=== PATIENT | male | born 1935 | race Caucasian/White ===

== ENCOUNTER 2016-06-28 09:21 | Day surgery (SDC) | payer OTHER ==
[~2016-06-28] VITALS: Ht 188 cm; Wt 81.8 kg
[~2016-06-28 09:21] MED LIST: AMOX500T PO; ATOR20TA PO; CARV6.252 PO; CURCPOW PO; DABI150 PO; EFFE37.5 PO; FOLI1 PO; FURO20 PO; GLIP10TA6 PO; GLUC1000 PO; LISI-360 PO; TEMA15 PO
[2016-06-28] MEDS ORDERED: METF1000 PO (09:57)
[2016-06-28] MEDS ORDERED: THERTAB17 PO (09:57)
[2016-06-28] MEDS ORDERED: MULT-135 PO (09:57)
[2016-06-28] MEDS ORDERED: ATOR40TA16 PO (09:57)
[2016-06-28] MEDS ORDERED: DILT-30 PO (09:57)
[2016-06-28] MEDS ORDERED: MILKSUS PO (09:57)
[2016-06-28] MEDS ORDERED: VITACAP7 PO (09:57)
[2016-06-28] MEDS ORDERED: PRAD150C PO (09:57)
[2016-06-28] MEDS ORDERED: POTA10TA2 PO (09:57)
[2016-06-28] MEDS ORDERED: ACET325T PO (09:57)
[2016-06-28] MEDS ORDERED: CARV12.52 PO (09:57)
[2016-06-28] MEDS ORDERED: LEXA10TA PO (09:57)
[2016-06-28] MEDS ORDERED: SERO25TA PO (09:57)
[2016-06-28] MEDS ORDERED: MAGN400T2 PO (09:57)
[2016-06-28] MEDS ORDERED: ASPI1TAB69 PO ×2 (09:57→09:58)
[2016-06-28] MEDS ORDERED: CLOP75TA PO (09:57)
[2016-06-28] MEDS ORDERED: FURO20TA PO (09:57)
[2016-06-28] MEDS ORDERED: GENTAMICIN SULFATE TOP (09:57)
[2016-06-28] MEDS ORDERED: DULC10SU3 RECTAL (09:57)
[2016-06-28] MEDS ORDERED: FERR325T PO (09:57)
[2016-06-28] MEDS ORDERED: GLIP5TAB8 PO (09:57)
[2016-06-28] MEDS ORDERED: GABA300C5 PO (09:57)
[2016-06-28 09:58] VITALS: BP 157/81; PULSE 92; RESP 16; TEMP 98; O2SAT 97
[2016-06-28 10:00] VITALS: BP 157/81; PULSE 98; RESP 18; TEMP 97.7; O2SAT 96
[2016-06-28] MEDS ORDERED: SODIUM BICARBONATE 100 MEQ in D5W 1000 ML IV SCH (10:00)
[2016-06-28] MEDS ORDERED: SODIUM CHLORIDE 0.9% FLUSH 10 ML FLUSH IV FLUSH PRN ×2 (10:00)
[2016-06-28] MEDS ORDERED: [UNRECOGNIZED DRUG - REMARK] OTHER SCH (10:00)
[2016-06-28 10:03] LABS: AUTOMATED NEUTROPHIL # 6.9 TH/MM3 (1.8-7.7); BASOPHIL # 0.1 TH/MM3 (0-0.2); BASOPHIL % 0.9 % (0.0-2.0); EOSINOPHIL # 0.2 TH/MM3 (0-0.4); EOSINOPHIL % 1.7 % (0.0-4.0); HEMATOCRIT 31.1 % (39.0-51.0); HEMO FLAGS DIFF FINAL; LYMPH % 13.5 % (9.0-44.0); LYMPHOCYTE # 1.3 TH/MM3 (1.0-4.8); MEAN CELL VOLUME 76.9 FL (80.0-100.0); MEAN CORPUSCULAR HEMOGLOBIN 25.2 PG (27.0-34.0); MEAN CORPUSCULAR HGB CONC 32.8 % (32.0-36.0); MONO % 11.6 % (0.0-8.0); NEUT % 72.3 % (16.0-70.0); PLATELET COUNT 512 TH/MM3 (150-450); RED BLOOD COUNT 4.04 MIL/MM3 (4.50-5.90); RED CELL DISTRIBUTION WIDTH 19.1 % (11.6-17.2); WHITE BLOOD COUNT 9.6 TH/MM3 (4.0-11.0)
[2016-06-28 10:15] LABS: BICARBONATE 28.3 MEQ/L (21.0-32.0); POTASSIUM 4.2 MEQ/L (3.5-5.1)
[2016-06-28 10:23] LABS: INTERNATIONAL NORMALIZED RATIO 1.1 RATIO; PROTHROMBIN TIME - PATIENT 12.7 SEC (9.8-11.6)
[2016-06-28] MEDS ORDERED: MIDAZOLAM HCL 2 MG/2 ML VIAL ONE (12:30)
[2016-06-28] MEDS ORDERED: HEPARIN-NS/PF INJ 500 ML ONE (12:30)
[2016-06-28] MEDS ORDERED: HEPARIN SODIUM - IV 10,000 UNITS/10 ML VIAL ONE (12:31)
[2016-06-28] MEDS ORDERED: IOHEXOL 350 MG/ML 100 ML BTL (for Cath Lab) OTHER ONE (14:00)
--- NOTE | 2016-06-28 16:07 | MA ---
cc: DAVID PERRY DATE 06/28/2016 Angiogram PREOPERATIVE DIAGNOSIS Nonhealing ulcer left lower extremity. POSTOPERATIVE DIAGNOSIS Nonhealing ulcer left lower extremity. PROCEDURE Aortogram and selective left lower extremity arteriogram. SURGEON David Perry D.O. PROCEDURE I got access to the right common femoral artery using duplex ultrasound. I placed a 21 gauge needle in the right common femoral artery after the patient was under moderate sedation and after injecting 5 mL of 1% lidocaine. I used the Seldinger technique to exchange for a 5-Japanese sheath and I advanced an Omni flush catheter in the distal abdominal aorta and shot pelvic oblique arteriograms. I then selected out the left external iliac artery using angled glide catheter and then shot a second left lower extremity arteriogram. Then I pulled my catheter out and shot a selective right groin shot, and then pulled the sheath and applied pressure to the right groin. The patient tolerated the procedure well. FINDINGS My findings were that the abdominal aorta below the level of the renal arteries appeared to be widely patent. The bilateral common internal and external iliac arteries were patent, although tortuous. The right common femoral artery had just a mild to moderate stenosis with extensive calcification and the proximal SFA and profunda femoral arteries were patent. The left common femoral artery had a moderately severe stenosis. The patient had runoff through the profunda femoral artery and superficial femoral artery. 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 The patient's left anterior tibial artery was occluded and the left peroneal artery was patent but it was difficult to see with the patient's movement. ] CONCLUSION The patient had a bilateral common femoral arteries with moderate stenoses. 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 DO LEVY Wild/JEREMI /1:45 PM /3:45 PM
== END 2016-06-28 18:42 ==
LOC: HDOC 09:21 → HDIC 09:21 → HDOC 18:42
PROVIDERS: ATTEND Surgery
DX: I70.213 Atherosclerosis of native arteries of extremities with intermittent claudication, bilateral legs (principal); I70.245 Atherosclerosis of native arteries of left leg with ulceration of other part of foot; L97.929 Non-pressure chronic ulcer of unspecified part of left lower leg with unspecified severity; I48.91 Unspecified atrial fibrillation; I10 Essential (primary) hypertension; Z79.01 Long term (current) use of anticoagulants
CPT/HCPCS: 36246; 75625; 75710; 80048; 85025; 85610; C1769; C1887; C1893; J1644; J2250; J3010; J7070; Q9967

== ENCOUNTER → 2016-07-27 | Outpatient (CLI) | payer OTHER ==
[~2016-07-27] MED LIST changes: +ACET325T PO; -AMOX500T PO; +ASPI1TAB69 PO; -ATOR20TA PO; +ATOR40TA16 PO; +BACT800T5 PO; +CARV12.52 PO; -CARV6.252 PO; +CLOP75TA PO; -CURCPOW PO; -DABI150 PO; +DILT-30 PO; +DULC10SU3 RECTAL; -EFFE37.5 PO; +FERR325T PO; +FLEEENE3 RECTAL; -FOLI1 PO; -FURO20 PO; +FURO20TA PO; +GABA300C5 PO; +GENTAMICIN SULFATE TOP; -GLIP10TA6 PO; +GLIP5TAB8 PO; -GLUC1000 PO; +GLUCLIQ15 PO; +HYDR-3516 PO; +LACTCHW3 CHEW; +LEVA500T PO; +LEXA10TA PO; -LISI-360 PO; +MAGN400T2 PO; +METF1000 PO; +MILKSUS PO; +MULT-135 PO; +NORC5TAB PO; +POTA10TA2 PO; +PRAD150C PO; +PROSTAB PO; +SERO25TA PO; +STRETAB PO; -TEMA15 PO; +THERTAB17 PO; +VITACAP7 PO
[2016-07-27 13:38] LABS: AUTOMATED NEUTROPHIL # 15.4 TH/MM3 (1.8-7.7); BASOPHIL # 0.1 TH/MM3 (0-0.2); BASOPHIL % 0.4 % (0.0-2.0); EOSINOPHIL # 0.3 TH/MM3 (0-0.4); EOSINOPHIL % 1.9 % (0.0-4.0); HEMATOCRIT 29.2 % (39.0-51.0); LYMPH % 6.1 % (9.0-44.0); LYMPHOCYTE # 1.1 TH/MM3 (1.0-4.8); MEAN CELL VOLUME 73.5 FL (80.0-100.0); MEAN CORPUSCULAR HEMOGLOBIN 23.8 PG (27.0-34.0); MEAN CORPUSCULAR HGB CONC 32.4 % (32.0-36.0); MONO % 6.6 % (0.0-8.0); PLATELET COUNT 549 TH/MM3 (150-450); RED BLOOD COUNT 3.96 MIL/MM3 (4.50-5.90); WHITE BLOOD COUNT 18.1 TH/MM3 (4.0-11.0)
[2016-07-27 13:39] LABS: HEMO FLAGS AUTO DIFF
[2016-07-27 13:45] LABS: INTERNATIONAL NORMALIZED RATIO 1.1 RATIO; PROTHROMBIN TIME - PATIENT 12.2 SEC (9.8-11.6)
[2016-07-27 14:03] LABS: ALKALINE PHOSPHATASE 120 U/L (45-117); ALT (GPT) 47 U/L (12-78); ANION GAP 5 MEQ/L (5-15); AST (GOT) 22 U/L (15-37); BICARBONATE 30.4 MEQ/L (21.0-32.0); BLOOD UREA NITROGEN 22 MG/DL (7-18); CHLORIDE 98 MEQ/L (98-107); GLOMERULAR FILTRATION RATE 71 ML/MIN (>89); GLUCOSE,FASTING 96 MG/DL (74-99); POTASSIUM 4.4 MEQ/L (3.5-5.1); SODIUM (NA) 133 MEQ/L (136-145); TOTAL BILIRUBIN ADULT 0.3 MG/DL (0.2-1.0)
[2016-07-27 14:19] LABS: ACANTHOCYTES OCC (NORMAL)
[2016-07-27 14:20] LABS: OVALOCYTES 1+ (NORMAL); SCAN/DIFF AUTO DIFF CONFIRMED
--- NOTE | 2016-07-27 14:35 | RADRPT ---
EXAM DATE/TIME: 07/27/2016 13:42 [facility] COMPARISON: No previous studies available for comparison. INDICATIONS : Evaluate for pneumonia, pneumothorax, and communicable disease. Preop for femoral endarterectomy. MEDICAL HISTORY : Myocardial infarction. Cardiovascular disease. Hypertension. Diabetes. SURGICAL HISTORY : None. ENCOUNTER: Initial ACUITY: 1 day PAIN SCORE: 0/10 LOCATION: Bilateral chest FINDINGS: The lungs are clear without infiltrate, nodule, or mass. There is no appreciable pleural effusion fo r technique. Heart and mediastinum are unremarkable. There are atherosclerotic calcifications of the aorta due to chronic atherosclerotic disease. Chronic degenerative changes are present in bilateral shoulders with chronic tendinitis in the right shoulder as well. CONCLUSION: No acute cardiopulmonary disease. Giuseppe Underwood MD on July 27, 2016 at 14:32 Board Certified Radiologist. This report was verified electronically.
--- NOTE | 2016-07-28 13:52 | EKG ---
Date Performed: 07/27/2016 Time Performed: 13:02:00 PTAGE: 80 years EKG: ATRIAL FIBRILLATION MODERATE INTRAVENTRICULAR CONDUCTION DELAY MODERATE ST DEPRESSION ABNOR MAL ECG Compared to prior tracing no significant change PREVIOUS TRACING : 05/07/2015 18.44 DOCTOR: Ronnell Broussard Interpretating Date/Time 07/28/2016 13:50:57
== END ==
LOC: EDSTATUS 11:00 → CPRE 12:29
PROVIDERS: ATTEND Surgery
DX: Z01.810 Encounter for preprocedural cardiovascular examination (principal); Z01.811 Encounter for preprocedural respiratory examination; Z01.812 Encounter for preprocedural laboratory examination; I73.9 Peripheral vascular disease, unspecified; R94.31 Abnormal electrocardiogram [ECG] [EKG]
CPT/HCPCS: 36415; 71020; 80053; 85025; 85610; 86850; 86900; 86901; 93005

== ENCOUNTER 2016-08-02 11:43 | Inpatient (IN) | payer OTHER, MEDICARE ==
[~2016-08-02] VITALS: Ht 188 cm; Wt 72.5 kg
[~2016-08-02 11:43] MED LIST changes: -BACT800T5 PO; +BUPIVACAINE HCL PF 0.5% 30 ML VIAL NERV BLOCK ONE; -FLEEENE3 RECTAL; -GENTAMICIN SULFATE TOP; -GLUCLIQ15 PO; -HYDR-3516 PO; -LACTCHW3 CHEW; -LEVA500T PO; -NORC5TAB PO; -PROSTAB PO; -STRETAB PO
[2016-08-02 11:46] VITALS: BP 102/56; PULSE 67; RESP 14; TEMP 97.4; O2SAT 94
--- NOTE | 2016-08-02 11:52 | PD ---
Physical Exam Time Seen by Provider: 11:49 Narrative 80 y/o male presents with L foot "infection." Resident of [facility]. Wound care physician saw his foot today who spoke with his vascular sx Dr. Bhardwaj and advised to come here. Vital signs reviewed. Seen at triage desk. Awaiting bed placement. Data Data Last Documented VS Vital Signs Date Time Temp Pulse Resp B/P Pulse Ox O2 Delivery O2 Flow Rate FiO2 08/02/16 11:46 97.4 67 14 102/56 94 MDM Medical Record Reviewed: Yes Supervised Visit with ANDREWS: Luis Benitez August 02, 2016 11:52
[2016-08-02] MEDS ORDERED: VANCOMYCIN INJ 1,000 MG in SODIUM CHLOR 0.9% 250 ML INJ 250 ML IV ONE (12:30)
--- NOTE | 2016-08-02 12:36 | PD ---
HPI Chief Complaint: Injury Time Seen by Provider: 12:29 Travel History International Travel<30 days: No Contact w/Intl Traveler<30days: No Traveled to known affect area: No History of Present Illness HPI Patient comes emergency Department from [facility] for evaluation of his left foot wound been ongoing for several weeks. Patient's states that he is supposed to have surgery this Monday by Dr. Angeles secondary to having decreased arterial flow as left lower extremity however after receiving wound care today his reports the wound care physician spoke with Dr. Angeles and was recommended the patient of the emergency department for further treatment and evaluation. Patient reports pain around the site infection without radiation. Pain is worse with walking. Denies any known fevers, nausea, vomiting, chest pain, shortness of breath. Patient is currently on Bactrim and Levaquin, which he has received today. Patient has a history of depression, hyperlipidemia, hypertension, coronary artery disease, anemia, A. fib, diabetes mellitus, and CHF. PFSH Past Medical History Hx Anticoagulant Therapy: Yes (PRADAXA) Asthma: No Atrial Fibrillation: Yes Anxiety: Yes (occasional) Depression: Yes (occasional) Heart Rhythm Problems: Yes Cancer: No Cardiovascular Problems: Yes ([place]) High Cholesterol: Yes Chemotherapy: No Chest Pain: No Congestive Heart Failure: No COPD: No Diabetes: Yes Diminished Hearing: No Endocrine: No Gastrointestinal Disorders: No Genitourinary: No Hypertension: Yes Musculoskeletal: Yes (cramps in legs) Neurologic: No Psychiatric: No Reproductive: No Respiratory: No Myocardial Infarction: Yes Radiation Therapy: No Sleep Apnea: Yes (untreated) Thyroid Disease: No Tetanus Vaccination: Unknown Influenza Vaccination: Yes Past Surgical History Other Surgery: Yes (big toes amputated) Social History Alcohol Use: No Tobacco Use: No Substance Use: No Allergies-Medications (Allergen,Severity, Reaction): Coded Allergies: No Known Allergies (Verified , 08/02/16) Reported Meds & Prescriptions Reported Meds & Active Scripts Active Reported [place] (Hydrocodone-Acetaminophen) 5-325 mg Tab 1 Tab PO Q6H PRN Fleet Enema Rectal (Sodium Phosphates Rectal) 7-19 Gm/118 Ml Enem 1 Applic RECTAL DAILY PRN Glucerna Shake (Nutritional Supplements) 1 Liq Liq 1 Can PO WITH MEALS Bactrim DS (Sulfamethoxazole-Trimethoprim) 800-160 Mg Tab 1 Tab PO BID Stress Formula (Multiple Vitamins W/ Minerals) 1 Tab 1 Tab PO DAILY Levaquin (Levofloxacin) 500 Mg Tab 500 Mg PO DAILY 7 Days Prosight (Multiple Vitamins W/ Minerals) 1 Tab Tab 1 Tab PO DAILY Aspirin 81 Mg Tabdr 81 Mg PO DAILY Thera-M (Multiple Vitamins W/ Minerals) 1 Tab 1 Tab PO DAILY Potassium Chloride ER (Potassium Chloride) 10 Meq Tab 10 Meq PO TID Milk of Magnesia Liq (Magnesium Hydroxide) 400 Mg/5 Ml Susp 30 Ml PO DAILY PRN Metformin (Metformin HCl) 1,000 Mg Tab 1,000 Mg PO BIDPC With meals Magnesium Oxide 400 Mg Tab 400 Mg PO DAILY Lexapro (Escitalopram Oxalate) 10 Mg Tab 10 Mg PO DAILY Glipizide 5 Mg Tab 5 Mg PO DAILY Take 30 minutes before a meal Gabapentin 300 Mg Cap 300 Mg PO BID Furosemide 20 Mg Tab 20 Mg PO DAILY Ferrous Sulfate 325 Mg Tab 325 Mg PO DAILY Dulcolax Supp (Bisacodyl) 10 Mg Supp 10 Mg RECTAL DAILY PRN Diltiazem ER 24 HR 180 Mg Caper 180 Mg PO DAILY Clopidogrel (Clopidogrel Bisulfate) 75 Mg Tab 75 Mg PO DAILY Carvedilol 12.5 Mg Tab 12.5 Mg PO BID Atorvastatin (Atorvastatin Calcium) 40 Mg Tab 40 Mg PO HS Acetaminophen 325 Mg Tab 650 Mg PO Q4HR PRN Review of Systems Except as stated in HPI: all other systems reviewed are Neg Physical Exam Narrative GENERAL: Well-developed, well nourished, in no acute distress, and non-ill appearing. SKIN: Necrotic third toe left lower extremity. There is tenderness along the plantar surface necrotic appearing tissue extending from the third toe there is some what appears to be air versus fluid under the skin, but does not feel crepitus. There is scant drainage noted around the toe. HEAD: Atraumatic. Normocephalic. EYES: Pupils equal and round. EOMI. No scleral icterus. No injection or drainage. ENT: No nasal bleeding or discharge. Mucous membranes pink and moist. NECK: Trachea midline. Supple. No nuclear rigidity. CARDIOVASCULAR: Regular rate and rhythm. No murmur appreciated. 1+ dorsal pulses on the right lower extremity, there is no palpable on left. Doppler was attempted with no pulse noted on the left. RESPIRATORY: No accessory muscle use. No respiratory distress. Clear to auscultation. Breath sounds equal bilaterally. MUSCULOSKELETAL: No obvious deformities. No clubbing. No cyanosis. No edema. NEUROLOGICAL: Awake and alert. No obvious cranial nerve deficits. Normal speech. PSYCHIATRIC: Appropriate mood and affect; insight and judgment normal. Data Data Last Documented VS Vital Signs Date Time Temp Pulse Resp B/P Pulse Ox O2 Delivery O2 Flow Rate FiO2 08/02/16 12:41 62 14 119/67 08/02/16 12:41 95 Nasal Cannula 2 08/02/16 11:46 97.4 Orders Electrocardiogram (08/02/16 12:15) Complete Blood Count With Diff (08/02/16 12:15) Comprehensive Metabolic Panel (08/02/16 12:15) Prothrombin Time / Inr (Pt) (08/02/16 12:15) Act Partial Throm Time (Ptt) (08/02/16 12:15) Lactic Acid Sepsis Protocol (08/02/16 12:15) Magnesium (Mg) (08/02/16 12:15) Blood Culture (08/02/16 12:15) Wound Culture And Gram Stain (08/02/16 12:15) Ecg Monitoring (08/02/16 12:15) Iv Access Insert/Monitor (08/02/16 12:15) Oximetry (08/02/16 12:15) Oxygen Administration (08/02/16 12:15) Westergren Sedimentation Rate (08/02/16 12:15) C-Reactive Protein (Crp) (08/02/16 12:15) Foot, Complete ([id number]) (08/02/16 ) Vancomycin Inj (Vancomycin Inj) (08/02/16 12:30) Consult Vascular Surgery (08/02/16 ) Admit To Inpatient (08/02/16 ) Code Status (08/02/16 13:37) Vital Signs (Adult) Q4H (08/02/16 13:37) Activity Oob With Assistance (08/02/16 13:37) Diet 1800 Ada Cons Carb (08/02/16 Lunch) Sodium Chloride 0.9% Flush (Ns Flush) (08/02/16 13:45) Sodium Chloride 0.9% Flush (Ns Flush) (08/02/16 21:00) Acetaminophen (Tylenol) (08/02/16 13:45) Ondansetron Inj (Zofran Inj) (08/02/16 13:45) Comprehensive Metabolic Panel (08/03/16 06:00) Complete Blood Count With Diff (08/03/16 06:00) Pt Request For Service (08/02/16 13:37) Naloxone Inj (Narcan Inj) (08/02/16 13:45) Inpatient Certification (08/02/16 ) Admit Order (Ed Use Only) (08/02/16 13:39) Labs Laboratory Tests Test 08/02/16 12:20 White Blood Count 12.8 TH/MM3 Red Blood Count 3.75 MIL/MM3 Hemoglobin 9.1 GM/DL Hematocrit 27.2 % Mean Corpuscular Volume 72.6 FL Mean Corpuscular Hemoglobin 24.2 PG Mean Corpuscular Hemoglobin 33.3 % Concent Red Cell Distribution Width 19.2 % Platelet Count 483 TH/MM3 Mean Platelet Volume 6.8 FL Neutrophils (%) (Auto) 78.8 % Lymphocytes (%) (Auto) 8.4 % Monocytes (%) (Auto) 10.5 % Eosinophils (%) (Auto) 1.8 % Basophils (%) (Auto) 0.5 % Neutrophils # (Auto) 10.1 TH/MM3 Lymphocytes # (Auto) 1.1 TH/MM3 Monocytes # (Auto) 1.3 TH/MM3 Eosinophils # (Auto) 0.2 TH/MM3 Basophils # (Auto) 0.1 TH/MM3 CBC Comment AUTO DIFF Differential Comment AUTO DIFF CONFIRMED Platelet Estimate HIGH Platelet Morphology Comment NORMAL Ovalocytes 1+ Acanthocytes OCC Keratocytes OCC Erythrocyte Sedimentation Rate 101 mm/hr Prothrombin Time 12.6 SEC Prothromb Time International 1.1 RATIO Ratio Activated Partial 29.4 SEC Thromboplast Time Sodium Level 133 MEQ/L Potassium Level 4.7 MEQ/L Chloride Level 99 MEQ/L Carbon Dioxide Level 22.8 MEQ/L Anion Gap 11 MEQ/L Blood Urea Nitrogen 20 MG/DL Creatinine 1.23 MG/DL Estimat Glomerular Filtration 57 ML/MIN Rate Random Glucose 67 MG/DL Lactic Acid Level 2.5 mmol/L Calcium Level 9.2 MG/DL Magnesium Level 2.3 MG/DL Total Bilirubin 0.3 MG/DL Aspartate Amino Transf 22 U/L (AST/SGOT) Alanine Aminotransferase 36 U/L (ALT/SGPT) Alkaline Phosphatase 114 U/L C-Reactive Protein 5.70 MG/DL Total Protein 8.3 GM/DL Albumin 2.8 GM/DL MDM Medical Decision Making Medical Screen Exam Complete: Yes Emergency Medical Condition: Yes Interpretation(s) EKG reviewed by Dr. Morales shows atrial fibrillation a ventricular rate of 69. No STEMI. Differential Diagnosis Gangrene, osteomyelitis, nonhealing diabetic ulcer, wound infection, other Narrative Course Patient seen and examined. Initial laboratory and radiology studies were obtained and reviewed. Wound and blood cultures were obtained and are currently pending. Patient was given of vancomycin IV. Discussed patient with Dr. Morales, who saw and evaluated the patient and is in agreement with plan of care and disposition. Discussed all findings and plan care of patient and his , patient is agreeable for admission. All questions were answered. Patient remained stable throughout ED course. Physician Communication Physician Communication [address] Karthik Blackwood's nurse practitioner, who recommends having patient admitted to medicine and they will consult. [address] Oivedo is agreeable to admit the patient. [address] Angeles, who request a stat CT of foot with IV contrast, requesting a UA to be sent, and keep patient NPO for now. [address] results [address] Dr. Karthik Blackwood's nurse practitioner. Diagnosis Primary Impression: Diabetic foot infection Admitting Information Admitting Physician Requests: Admit Condition: Stable Edwardo White August 02, 2016 12:36
[2016-08-02 12:41] VITALS: BP 119/67; PULSE 62; RESP 14
[2016-08-02 12:48] LABS: AUTOMATED NEUTROPHIL # 10.1 TH/MM3 (1.8-7.7); BASOPHIL # 0.1 TH/MM3 (0-0.2); BASOPHIL % 0.5 % (0.0-2.0); EOSINOPHIL # 0.2 TH/MM3 (0-0.4); EOSINOPHIL % 1.8 % (0.0-4.0); HEMATOCRIT 27.2 % (39.0-51.0); LYMPH % 8.4 % (9.0-44.0); LYMPHOCYTE # 1.1 TH/MM3 (1.0-4.8); MEAN CELL VOLUME 72.6 FL (80.0-100.0); MEAN CORPUSCULAR HEMOGLOBIN 24.2 PG (27.0-34.0); MEAN CORPUSCULAR HGB CONC 33.3 % (32.0-36.0); MONO % 10.5 % (0.0-8.0); NEUT % 78.8 % (16.0-70.0); PLATELET COUNT 483 TH/MM3 (150-450); RED BLOOD COUNT 3.75 MIL/MM3 (4.50-5.90); RED CELL DISTRIBUTION WIDTH 19.2 % (11.6-17.2); WHITE BLOOD COUNT 12.8 TH/MM3 (4.0-11.0)
[2016-08-02 12:52] LABS: HEMO FLAGS AUTO DIFF
[2016-08-02 12:57] LABS: APTT (PATIENT) 29.4 SEC (24.3-30.1); INTERNATIONAL NORMALIZED RATIO 1.1 RATIO; PROTHROMBIN TIME - PATIENT 12.6 SEC (9.8-11.6)
--- NOTE | 2016-08-02 12:57 | RADRPT ---
EXAM DATE/TIME: 08/02/2016 12:37 [facility] COMPARISON: No previous studies available for comparison. INDICATIONS : Distal left foot swelling and infection. MEDICAL HISTORY : Cardiovascular disease. Diabetes mellitus type 2. Dementia. SURGICAL HISTORY : Oral surgery. ENCOUNTER: Initial ACUITY: 1 week PAIN SCORE: 4/10 LOCATION: Left distal foot. 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 No cortical destruct ion or lucency appreciated. No air within the soft tissues. Old trauma involving the third metatarsal . No acute abnormality. Atherosclerotic changes involving the trifurcation vessels. CONCLUSION: 1. Prior amputations. 2. No acute abnormality. Jose Luis Welch Jr., MD on August 02, 2016 at 12:43 Board Certified Radiologist. This report was verified electronically.
[2016-08-02 13:05] LABS: ANION GAP 11 MEQ/L (5-15); AST (GOT) 22 U/L (15-37); BICARBONATE 22.8 MEQ/L (21.0-32.0); BLOOD UREA NITROGEN 20 MG/DL (7-18); CHLORIDE 99 MEQ/L (98-107); GLOMERULAR FILTRATION RATE 57 ML/MIN (>89); MAGNESIUM 2.3 MG/DL (1.5-2.5); POTASSIUM 4.7 MEQ/L (3.5-5.1); SODIUM (NA) 133 MEQ/L (136-145)
[2016-08-02 13:09] LABS: ALKALINE PHOSPHATASE 114 U/L (45-117); ALT (GPT) 36 U/L (12-78); TOTAL BILIRUBIN ADULT 0.3 MG/DL (0.2-1.0)
[2016-08-02 13:24] LABS: ACANTHOCYTES OCC (NORMAL); KERATOCYTES OCC (NORMAL); OVALOCYTES 1+ (NORMAL)
[2016-08-02 13:26] LABS: PLATELET ESTIMATE SMEAR HIGH (NORMAL); PLATELET MORPHOLOGY NORMAL (NORMAL); SCAN/DIFF AUTO DIFF CONFIRMED
--- NOTE | 2016-08-02 13:27 | PD ---
Data Data Last Documented VS Vital Signs Date Time Temp Pulse Resp B/P Pulse Ox O2 Delivery O2 Flow Rate FiO2 08/02/16 12:41 62 14 119/67 08/02/16 12:41 95 Nasal Cannula 2 08/02/16 11:46 97.4 Orders Electrocardiogram (08/02/16 12:15) Complete Blood Count With Diff (08/02/16 12:15) Comprehensive Metabolic Panel (08/02/16 12:15) Prothrombin Time / Inr (Pt) (08/02/16 12:15) Act Partial Throm Time (Ptt) (08/02/16 12:15) Lactic Acid Sepsis Protocol (08/02/16 12:15) Magnesium (Mg) (08/02/16 12:15) Blood Culture (08/02/16 12:15) Wound Culture And Gram Stain (08/02/16 12:15) Ecg Monitoring (08/02/16 12:15) Iv Access Insert/Monitor (08/02/16 12:15) Oximetry (08/02/16 12:15) Oxygen Administration (08/02/16 12:15) Westergren Sedimentation Rate (08/02/16 12:15) C-Reactive Protein (Crp) (08/02/16 12:15) Foot, Complete ([id number]) (08/02/16 ) Vancomycin Inj (Vancomycin Inj) (08/02/16 12:30) Consult Vascular Surgery (08/02/16 ) Labs Laboratory Tests Test 08/02/16 12:20 White Blood Count 12.8 TH/MM3 Red Blood Count 3.75 MIL/MM3 Hemoglobin 9.1 GM/DL Hematocrit 27.2 % Mean Corpuscular Volume 72.6 FL Mean Corpuscular Hemoglobin 24.2 PG Mean Corpuscular Hemoglobin 33.3 % Concent Red Cell Distribution Width 19.2 % Platelet Count 483 TH/MM3 Mean Platelet Volume 6.8 FL Neutrophils (%) (Auto) 78.8 % Lymphocytes (%) (Auto) 8.4 % Monocytes (%) (Auto) 10.5 % Eosinophils (%) (Auto) 1.8 % Basophils (%) (Auto) 0.5 % Neutrophils # (Auto) 10.1 TH/MM3 Lymphocytes # (Auto) 1.1 TH/MM3 Monocytes # (Auto) 1.3 TH/MM3 Eosinophils # (Auto) 0.2 TH/MM3 Basophils # (Auto) 0.1 TH/MM3 CBC Comment AUTO DIFF Differential Comment AUTO DIFF CONFIRMED Platelet Estimate HIGH Platelet Morphology Comment NORMAL Ovalocytes 1+ Acanthocytes OCC Keratocytes OCC Erythrocyte Sedimentation Rate 101 mm/hr Prothrombin Time 12.6 SEC Prothromb Time International 1.1 RATIO Ratio Activated Partial 29.4 SEC Thromboplast Time Sodium Level 133 MEQ/L Potassium Level 4.7 MEQ/L Chloride Level 99 MEQ/L Carbon Dioxide Level 22.8 MEQ/L Anion Gap 11 MEQ/L Blood Urea Nitrogen 20 MG/DL Creatinine 1.23 MG/DL Estimat Glomerular Filtration 57 ML/MIN Rate Random Glucose 67 MG/DL Lactic Acid Level 2.5 mmol/L Calcium Level 9.2 MG/DL Magnesium Level 2.3 MG/DL Total Bilirubin 0.3 MG/DL Aspartate Amino Transf 22 U/L (AST/SGOT) Alanine Aminotransferase 36 U/L (ALT/SGPT) Alkaline Phosphatase 114 U/L C-Reactive Protein 5.70 MG/DL Total Protein 8.3 GM/DL Albumin 2.8 GM/DL MDM Supervised Visit with ANDREWS: Yes Narrative Course The history, exam, and medical decision-making in the associated mid-level provider note were completed with my assistance. I reviewed and agree with the findings presented. I attest that I had a [id number] encounter with the patient on the same day, and personally performed and documented my assessment and findings in the medical record. *My assessment and Findings: This 80 year-old man history of left foot wound and several weeks, worsening, with evidence of arterial insufficiency. Wound continue to worsen today and so he sent to the emergency department. Is currently on Bactrim and Levaquin. Wound shows obvious purulence with evidence of fluctuance in several areas. Is no crepitus. We spoke with Dr. Fontaine's [employer], they'll come and evaluate the patient. Patient be admitted for IV antibiotics and further evaluation. Patient is currently on Pradaxa. Diagnosis Primary Impression: Diabetic foot infection Condition: Stable Santos Morales MD August 02, 2016 13:27
[2016-08-02] MEDS ORDERED: LEVA500T PO (13:31)
[2016-08-02] MEDS ORDERED: GLUCLIQ15 PO (13:31)
[2016-08-02] MEDS ORDERED: BACT800T5 PO (13:31)
[2016-08-02] MEDS ORDERED: PROSTAB PO (13:31)
[2016-08-02] MEDS ORDERED: STRETAB PO (13:31)
[2016-08-02] MEDS ORDERED: NORC5TAB PO (13:31)
[2016-08-02] MEDS ORDERED: FLEEENE3 RECTAL (13:31)
[2016-08-02] MEDS ORDERED: ONDANSETRON HCL 4 MG/2 ML VIAL IVP PRN (13:45)
[2016-08-02] MEDS ORDERED: NALOXONE HCL 0.4 MG/ML AMP IV PRN (13:45)
[2016-08-02] MEDS ORDERED: SODIUM CHLORIDE 0.9% FLUSH 10 ML FLUSH IV FLUSH PRN (13:45)
[2016-08-02] MEDS ORDERED: ACETAMINOPHEN 325 MG TAB PO PRN (13:45)
[2016-08-02 14:35] LABS: LACTIC ACID GHOST NOT REPORTABLE
[2016-08-02] MEDS ORDERED: SODIUM CHLOR 0.9% 1000 ML INJ 1,000 ML IV ONE (15:00)
[2016-08-02] MEDS ORDERED: IOHEXOL 350 MG/ML 10 ML VIAL (for RAD DIAG) IV ONE (15:20)
[2016-08-02] MEDS: METFORMIN HOLD POST IV CONTRAST SCH (15:20)
--- NOTE | 2016-08-02 15:22 | PD.VS.CON ---
History of Present Illness Chief Complaint: Left lower extremity diabetic foot wound. Consult Requested by: Dr. Oviedo History of Present Illness Patient is 80 year old diabetic male with dementia and a left foot and toe wound for about 5-6 months. He was scheduled for a left third toe amputation and revascularization later this week. His Pre-op testing identified a WBC count of 18 (now 12) and his wound care nurse noted a progression in odor and drainage on the plantar aspect of his left foot. Patient is confused but at bedside. Past/Family/Social History Past Medical History Patient has a history of dementia depression, hyperlipidemia, hypertension, coronary artery disease, anemia, A. fib, diabetes mellitus, and CHF. Home Medications Reported Medications Hydrocodone-Acetaminophen (Hondo)5-325 mg Tab1 Tab PO Q6H PRN (PAIN) Ref 0 08/02/16 Sodium Phosphates Rectal (Fleet Enema Rectal)7-19 Gm/118 Ml Enem1 Applic RECTAL DAILY PRN (CONSTIPATION) Ref 0 08/02/16 Nutritional Supplements (Glucerna Shake)1 Liq Liq1 Can PO WITH MEALS 08/02/16 Sulfamethoxazole-Trimethoprim (Bactrim DS)800-160 Mg Tab1 Tab PO BID #7 TAB Ref 0 08/02/16 Multiple Vitamins W/ Minerals (Stress Formula)1 Tab1 Tab PO DAILY Ref 0 08/02/16 Levofloxacin (Levaquin)500 Mg Ckf295 Mg PO DAILY 7 Days Ref 0 08/02/16 Multiple Vitamins W/ Minerals (Prosight)1 Tab Tab1 Tab PO DAILY 08/02/16 Aspirin 81 Mg Tabdr81 Mg PO DAILY 06/28/16 Multiple Vitamins W/ Minerals (Thera-M)1 Tab1 Tab PO DAILY Ref 0 06/28/16 Potassium Chloride ER 10 Meq Tab10 Meq PO TID #60 TAB Ref 0 06/28/16 Magnesium Hydroxide Liq (Milk of Magnesia Liq)400 Mg/5 Ml Susp30 Ml PO DAILY PRN (INDIGESTION OR UPSET STOMACH) #1 BOTTLE Ref 0 06/28/16 Metformin 1,000 Mg Tab1,000 Mg PO BIDPC #60 TAB Ref 0 With meals 06/28/16 Magnesium Oxide 400 Mg Lrw349 Mg PO DAILY Ref 0 06/28/16 Escitalopram (Lexapro)10 Mg Tab10 Mg PO DAILY #30 TAB Ref 0 06/28/16 Glipizide 5 Mg Tab5 Mg PO DAILY #30 TAB Ref 0 Take 30 minutes before a meal 06/28/16 Gabapentin 300 Mg Uug857 Mg PO BID #60 CAP Ref 0 06/28/16 Furosemide 20 Mg Tab20 Mg PO DAILY #30 TAB Ref 0 06/28/16 Ferrous Sulfate 325 Mg Hoj944 Mg PO DAILY #30 TAB Ref 0 06/28/16 Bisacodyl Supp (Dulcolax Supp)10 Mg Supp10 Mg RECTAL DAILY PRN (CONSTIPATION) # 12 SUPP Ref 0 06/28/16 Diltiazem ER 24 HR 180 Mg Gwzan410 Mg PO DAILY #30 CAP Ref 0 06/28/16 Clopidogrel 75 Mg Tab75 Mg PO DAILY #30 TAB Ref 0 06/28/16 Carvedilol 12.5 Mg Tab12.5 Mg PO BID #60 TAB Ref 0 06/28/16 Atorvastatin 40 Mg Tab40 Mg PO HS #30 TAB Ref 0 06/28/16 Acetaminophen 325 Mg Bqs617 Mg PO Q4HR PRN (PAIN/ELEVATED TEMP) Ref 0 06/28/16 Discontinued Reported Medications B-Complex Vitamins (B Complex)1 Cap1 Cap PO DAILY #30 CAP Ref 0 06/28/16 Quetiapine (Seroquel)25 Mg Tab25 Mg PO DAILY #30 TAB Ref 0 06/28/16 Multiple Vitamin (Multi Vitamin)1 Tab Tab1 Tab PO DAILY 06/28/16 Dabigatran (Pradaxa)150 Mg Mqt954 Mg PO BID #60 CAP Ref 0 06/28/16 [Gentamicin Sulfate ] No Conflict Check0.1 Applic TOP DAILY 06/28/16 Coded Allergies: No Known Allergies (Verified , 08/02/16) Review of Systems ROS Limitations: Altered Mental Status Physical Exam Vitals/I&O Date Time Temp Pulse Resp B/P Pulse Ox O2 Delivery O2 Flow Rate FiO2 08/02/16 12:41 62 14 119/67 08/02/16 12:41 95 Nasal Cannula 2 08/02/16 12:05 14 08/02/16 11:46 97.4 67 14 102/56 94 Neuro: Oriented to name but not place or condition. Neck: supple Heart: regular Lungs: No rhales Abdomen: soft and non-distended. Vascular: left DP absent and left PT monphasic Extremities: Left 3rd toe gangrene left lateral foot 4mm and 6mm denuded area. Left plantar foot with denuded skin over the medial aspect of the foot with mild discharge. Laboratory Tests Test 08/02/16 12:20 White Blood Count 12.8 Red Blood Count 3.75 Hemoglobin 9.1 Hematocrit 27.2 Mean Corpuscular Volume 72.6 Mean Corpuscular Hemoglobin 24.2 Mean Corpuscular Hemoglobin 33.3 Concent Red Cell Distribution Width 19.2 Platelet Count 483 Mean Platelet Volume 6.8 Neutrophils (%) (Auto) 78.8 Lymphocytes (%) (Auto) 8.4 Monocytes (%) (Auto) 10.5 Eosinophils (%) (Auto) 1.8 Basophils (%) (Auto) 0.5 Neutrophils # (Auto) 10.1 Lymphocytes # (Auto) 1.1 Monocytes # (Auto) 1.3 Eosinophils # (Auto) 0.2 Basophils # (Auto) 0.1 CBC Comment AUTO DIFF Differential Comment AUTO DIFF CONFIRMED Platelet Estimate HIGH Platelet Morphology Comment NORMAL Ovalocytes 1+ Acanthocytes OCC Keratocytes OCC Erythrocyte Sedimentation Rate 101 Prothrombin Time 12.6 Prothromb Time International 1.1 Ratio Activated Partial 29.4 Thromboplast Time Sodium Level 133 Potassium Level 4.7 Chloride Level 99 Carbon Dioxide Level 22.8 Anion Gap 11 Blood Urea Nitrogen 20 Creatinine 1.23 Estimat Glomerular Filtration 57 Rate Random Glucose 67 Lactic Acid Level 2.5 Calcium Level 9.2 Magnesium Level 2.3 Total Bilirubin 0.3 Aspartate Amino Transf 22 (AST/SGOT) Alanine Aminotransferase 36 (ALT/SGPT) Alkaline Phosphatase 114 C-Reactive Protein 5.70 Total Protein 8.3 Albumin 2.8 Date/Time Procedure Status Source Growth 08/02/16 12:20 Gram Stain - Final Resulted Wound Toe 08/02/16 12:20 Wound Culture Resulted Wound Toe Pending 08/02/16 12:20 Aerobic Blood Culture Received Blood Peripheral Pending 08/02/16 12:20 Anaerobic Blood Culture Received Blood Peripheral Pending Last 48 hours Impressions Foot X-Ray 08/02/16 0000 Signed Impressions: Service Date/Time: Tuesday, August 02, 2016 12:37 - CONCLUSION: 1. Prior amputations. 2. No acute abnormality. 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 Plan for hydration tonight with left 3rd toe amputation and I&D of the left foot in the AM. Possible left ankle disarticulation if infection is more pronounced at time of I&D/amputation. Patients and son(Nasim) are aware of plan. Patient with dementia so will try femoral/popliteal nerve block so surgery can be done with MAC.. Patient NPO after midnight, consented and marked for procedure. Continue hydration and IV antibiotics in the interim. David Bhardwaj DO, FACS [employer] [facility] [employer] /David Barry DO August 02, 2016 15:22
[2016-08-02 15:30] VITALS: BP 115/71; PULSE 75; RESP 14; O2SAT 94
--- NOTE | 2016-08-02 15:53 | RADRPT ---
EXAM DATE/TIME: 08/02/2016 15:18 [place] COMPARISON: No previous studies available for comparison. INDICATIONS : Left foot infection. IV CONTRAST: 70 cc Omnipaque 350 (iohexol) IV RADIATION DOSE: 7.29 CTDIvol (mGy) MEDICAL HISTORY : Diabetes mellitus type 2. Cardiovascular disease Hypertension. SURGICAL HISTORY : None. ENCOUNTER: Initial ACUITY: 3 weeks PAIN SCALE: 7/10 LOCATION: Left foot TECHNIQUE: Volumetric scanning of the foot was performed. Using automated exposure control and adjustment of th e mA and/or kV according to patient size, radiation dose was kept as low as reasonably achievable to obtain optimal diagnostic quality images. FINDINGS: The examination is motion degraded particularly involving the forefoot. Prior amputations involving the distal phalanx of the great toe and second toe with partial amputatio n of the heads of the middle phalanges of those toes. No cortical destruction appreciated on these li mited images. No radiopaque foreign bodies observed. A small amount of subcutaneous air is seen invol ving the plantar soft tissues at the mid metatarsal level. There is edema appreciated throughout the entire foot. No abscess observed. CONCLUSION: 1. Degraded study by motion artifact. 2. 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 3. Diffuse edema with subcutaneous air involving the plantar soft tissues. This can be seen in infect ions with gas producing organisms as well as air introduced via trauma. Jose Luis Welch Jr., MD on August 02, 2016 at 15:47 Board Certified Radiologist. This report was verified electronically.
[2016-08-02] MEDS ORDERED: VANCOMYCIN INJ 1,000 MG in SODIUM CHLOR 0.9% 250 ML INJ 250 ML IV SCH (16:00)
[2016-08-02] MEDS: DEXT 5%-NACL 0.45% 1000 ML INJ 1,000 ML IV SCH (16:13)
[2016-08-02] MEDS: PIPERACIL-TAZO 3.375 GM PREMIX 50 ML IV SCH (16:14)
[2016-08-02] MEDS ORDERED: GLUCAGON 1 MG/ML VIAL OTHER PRN (17:45)
[2016-08-02] MEDS ORDERED: DEXTROSE 50% IN WATER 50 ML VIAL(D50) IV PUSH PRN (17:45)
[2016-08-02 20:00] VITALS: BP 138/71; PULSE 95; RESP 18; TEMP 95.8; O2SAT 95
--- NOTE | 2016-08-02 20:20 | HHI.HP ---
[facility] Service [facility] Primary Care Physician Gorge Robb MD Admission Diagnosis diabetic wound infection Diagnoses: (1) Cellulitis in diabetic foot Diagnosis: Principal (2) Diabetes Diagnosis: Secondary (3) PAD (peripheral artery disease) Diagnosis: Principal (4) Atrial fibrillation Diagnosis: Secondary (5) Hypertension Diagnosis: Secondary (6) DM (diabetes mellitus) Diagnosis: Secondary (7) Dementia Diagnosis: Secondary (8) Diabetic foot infection Diagnosis: Principal Travel History International Travel<30 Days: No Contact w/Intl Traveler <30 Da: No Traveled to Known Affected Are: No History of Present Illness Mr. Marcos is a 80 year old male. He is here today due to worsening of his left foot wound, now with signs of infection and gangrene. He has chronic and poor lower extremity blood flow from PAD related to a history of smoking and DM2. As an outpatient he was planned for a third toe amputation and revascularization in 3 days and has been on levaquin and bactrim, but due to the worsening he came into the hospital and may have earlier intervention. History is obtained from his as he has dementia and is not fully oriented enough to provide a good history. No fever, tachycardia, or hypotension. Sepsis criteria are not present at time of admit. Review of Systems ROS Limitations: Altered Mental Status, Poor Historian Constitutional: DENIES: Fever, Chills Musculoskeletal: DENIES: Joint pain Foot Pain Past Family Social History Past Medical History DM2 Dementia PAD HTN CAD A-fib Hyperlipidemia Past Surgical History Prior foot surgeries and two removals bilaterally. Reported Medications Reported Meds & Active Scripts Active Reported Mcgee (Hydrocodone-Acetaminophen) 5-325 mg Tab 1 Tab PO Q6H PRN Fleet Enema Rectal (Sodium Phosphates Rectal) 7-19 Gm/118 Ml Enem 1 Applic RECTAL DAILY PRN Glucerna Shake (Nutritional Supplements) 1 Liq Liq 1 Can PO WITH MEALS Bactrim DS (Sulfamethoxazole-Trimethoprim) 800-160 Mg Tab 1 Tab PO BID Stress Formula (Multiple Vitamins W/ Minerals) 1 Tab 1 Tab PO DAILY Levaquin (Levofloxacin) 500 Mg Tab 500 Mg PO DAILY 7 Days Prosight (Multiple Vitamins W/ Minerals) 1 Tab Tab 1 Tab PO DAILY Aspirin 81 Mg Tabdr 81 Mg PO DAILY Thera-M (Multiple Vitamins W/ Minerals) 1 Tab 1 Tab PO DAILY Potassium Chloride ER (Potassium Chloride) 10 Meq Tab 10 Meq PO TID Milk of Herminia Liq (Magnesium Hydroxide) 400 Mg/5 Ml Susp 30 Ml PO DAILY PRN Metformin (Metformin HCl) 1,000 Mg Tab 1,000 Mg PO BIDPC With meals Magnesium Oxide 400 Mg Tab 400 Mg PO DAILY Lexapro (Escitalopram Oxalate) 10 Mg Tab 10 Mg PO DAILY Glipizide 5 Mg Tab 5 Mg PO DAILY Take 30 minutes before a meal Gabapentin 300 Mg Cap 300 Mg PO BID Furosemide 20 Mg Tab 20 Mg PO DAILY Ferrous Sulfate 325 Mg Tab 325 Mg PO DAILY Dulcolax Supp (Bisacodyl) 10 Mg Supp 10 Mg RECTAL DAILY PRN Diltiazem ER 24 HR 180 Mg Caper 180 Mg PO DAILY Clopidogrel (Clopidogrel Bisulfate) 75 Mg Tab 75 Mg PO DAILY Carvedilol 12.5 Mg Tab 12.5 Mg PO BID Atorvastatin (Atorvastatin Calcium) 40 Mg Tab 40 Mg PO HS Acetaminophen 325 Mg Tab 650 Mg PO Q4HR PRN Allergies: Coded Allergies: No Known Allergies (Verified , 08/02/16) Active Ordered Medications Administered Medications Medications (Trade) Dose Ordered Sig/Shaye Route PRN Reason Start Time Stop Time Status Last Admin Dose Admin Piperacillin Sod/ Tazobactam Sod 50 ml @ 100 mls/hr Q8H IV 08/02/16 16:00 08/02/16 16:14 Dextrose/Sodium Chloride (D5W-1/2 NS 1000 ml Inj) 1,000 ml @ 84 mls/hr [id number] IV 08/02/16 15:15 08/02/16 16:13 Family History Unable to obtain Social History History of smoking History of alcohol abuse No history of drug abuse (currently uses none of the above) Physical Exam Vital Signs Vital Signs Date Time Temp Pulse Resp B/P Pulse Ox O2 Delivery O2 Flow Rate FiO2 08/02/16 15:30 75 14 115/71 94 Room Air 08/02/16 12:41 62 14 119/67 08/02/16 12:41 95 Nasal Cannula 2 08/02/16 12:05 14 08/02/16 11:46 97.4 67 14 102/56 94 Physical Exam GENERAL: This is a well-nourished, well-developed patient, in no apparent distress. SKIN: No rashes, ecchymoses or lesions. Cool and dry. HEAD: Atraumatic. Normocephalic. No temporal or scalp tenderness. EYES: Pupils equal round and reactive. Extraocular motions intact. No scleral icterus. No injection or drainage. ENT: Nose without bleeding, purulent drainage or septal hematoma. Throat without erythema, tonsillar hypertrophy or exudate. Uvula midline. Airway patent. NECK: Trachea midline. No JVD or lymphadenopathy. Supple, nontender, no meningeal signs. CARDIOVASCULAR: Regular rate and rhythm without murmurs, gallops, or rubs. RESPIRATORY: Clear to auscultation. Breath sounds equal bilaterally. No wheezes , rales, or rhonchi. GASTROINTESTINAL: Abdomen soft, non-tender, nondistended. No hepato-splenomegaly , or palpable masses. No guarding. MUSCULOSKELETAL: Extremities without clubbing, cyanosis, or edema. No joint tenderness, effusion, or edema noted. No calf tenderness. Negative Homans sign bilaterally. NEUROLOGICAL: Awake and alert. Cranial nerves II through XII intact. Motor and sensory grossly within normal limits. Five out of 5 muscle strength in all muscle groups. Normal speech. Laboratory Laboratory Tests Test 08/02/16 08/02/16 12:20 18:09 White Blood Count 12.8 Red Blood Count 3.75 Hemoglobin 9.1 Hematocrit 27.2 Mean Corpuscular Volume 72.6 Mean Corpuscular Hemoglobin 24.2 Mean Corpuscular Hemoglobin 33.3 Concent Red Cell Distribution Width 19.2 Platelet Count 483 Mean Platelet Volume 6.8 Neutrophils (%) (Auto) 78.8 Lymphocytes (%) (Auto) 8.4 Monocytes (%) (Auto) 10.5 Eosinophils (%) (Auto) 1.8 Basophils (%) (Auto) 0.5 Neutrophils # (Auto) 10.1 Lymphocytes # (Auto) 1.1 Monocytes # (Auto) 1.3 Eosinophils # (Auto) 0.2 Basophils # (Auto) 0.1 CBC Comment AUTO DIFF Differential Comment AUTO DIFF CONFIRMED Platelet Estimate HIGH Platelet Morphology Comment NORMAL Ovalocytes 1+ Acanthocytes OCC Keratocytes OCC Erythrocyte Sedimentation Rate 101 Prothrombin Time 12.6 Prothromb Time International 1.1 Ratio Activated Partial 29.4 Thromboplast Time Sodium Level 133 Potassium Level 4.7 Chloride Level 99 Carbon Dioxide Level 22.8 Anion Gap 11 Blood Urea Nitrogen 20 Creatinine 1.23 Estimat Glomerular Filtration 57 Rate Random Glucose 67 Lactic Acid Level 2.5 1.0 Calcium Level 9.2 Magnesium Level 2.3 Total Bilirubin 0.3 Aspartate Amino Transf 22 (AST/SGOT) Alanine Aminotransferase 36 (ALT/SGPT) Alkaline Phosphatase 114 C-Reactive Protein 5.70 Total Protein 8.3 Albumin 2.8 Date/Time Procedure Status Source Growth 08/02/16 15:00 Gram Stain - Final Resulted Wound Foot 08/02/16 15:00 Wound Culture Resulted Wound Foot Pending 08/02/16 12:20 Aerobic Blood Culture Received Blood Peripheral Pending 08/02/16 12:20 Anaerobic Blood Culture Received Blood Peripheral Pending Result Diagram: 08/02/16 1220 08/02/16 1220 Imaging Last Impressions Lower Extremity CT 08/02/16 0000 Signed Impressions: Service Date/Time: Tuesday, August 02, 2016 15:18 - CONCLUSION: 1. Degraded study by motion artifact. 2. 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 3. Diffuse edema with subcutaneous air involving the plantar soft tissues. This can be seen in infections with gas producing organisms as well as air introduced via trauma. Jose Luis Welch Jr., MD Foot X-Ray 08/02/16 0000 Signed Impressions: Service Date/Time: Tuesday, August 02, 2016 12:37 - CONCLUSION: 1. Prior amputations. 2. No acute abnormality. Jose Luis Welch Jr., MD Assessment and Plan Problem List: (1) Dementia ICD Code: F03.90 Status: Acute (2) Diabetic foot infection ICD Code: E11.69 Status: Acute (3) DM (diabetes mellitus) ICD Code: E11.9 Status: Chronic (4) Hypertension ICD Code: I10 Status: Chronic (5) Atrial fibrillation ICD Code: I48.91 Status: Chronic (6) PAD (peripheral artery disease) ICD Code: I73.9 Status: Acute (7) Diabetes ICD Code: E11.9 Status: Chronic (8) Cellulitis in diabetic foot ICD Code: E13.628 Status: Acute Assessment and Plan Left foot Gangrene Left 3rd toe Gangrene Diabetic Foot Infection Cellulitis of left foot PAD Leukocytosis No SIRS or Sepsis at time of admit Complication of DM2 and Poor Circulation Vancomycin and Zosyn have been ordered Vascular surgeon consulted Toe amputation and I&D/Debridement planned Revascularization measures planned Follow vital signs Follow CBC HTN Continue baseline treatments Monitor BP Dementia Supportive Care DM2 SSI Diabetic Diet Follow blood sugars A-fib Telemetry Holding blood thinners till post op DVT Prophylaxis Surgery pending Initiate Lovenox post op Physician Certification 2 Midnight Certification Type: Admission for Inpatient Services Order for Inpatient Services The services are ordered in accordance with Medicare regulations or non- Medicare payer requirements, as applicable. In the case of services not specified as inpatient-only, they are appropriately provided as inpatient services in accordance with the 2-midnight benchmark. Estimated LOS (days): 6 days is the estimated time the patient will need to remain in the hospital, assuming treatment plan goals are met and no additional complications. Post-Hospital Plan: SNF Jose Manuel Oviedo MD August 02, 2016 20:20
[2016-08-02] MEDS: INSULIN ASPART SUPPLEMENTAL SCALE SQ SCH (20:49)
[2016-08-02] MEDS: SODIUM CHLORIDE 0.9% FLUSH 10 ML FLUSH IV FLUSH SCH (20:49)
[2016-08-03] VITALS (10 sets, daily range): BP systolic 122–150; BP diastolic 62–83; PULSE 60–96; RESP 17–20; TEMP 97.1–98.6; O2SAT 95–98
[2016-08-03] MEDS: PIPERACIL-TAZO 3.375 GM PREMIX 50 ML IV SCH ×3 (00:30→17:15)
[2016-08-03] MEDS ORDERED: LACTATED RINGER'S 1000 ML IV PRN (05:00)
[2016-08-03 06:21] LABS: AUTOMATED NEUTROPHIL # 7.8 TH/MM3 (1.8-7.7); BASOPHIL % 0.3 % (0.0-2.0); EOSINOPHIL # 0.2 TH/MM3 (0-0.4); EOSINOPHIL % 1.7 % (0.0-4.0); HEMATOCRIT 26.2 % (39.0-51.0); LYMPH % 10.9 % (9.0-44.0); LYMPHOCYTE # 1.1 TH/MM3 (1.0-4.8); MEAN CELL VOLUME 71.5 FL (80.0-100.0); MEAN CORPUSCULAR HEMOGLOBIN 23.7 PG (27.0-34.0); MEAN CORPUSCULAR HGB CONC 33.1 % (32.0-36.0); MONO % 8.8 % (0.0-8.0); NEUT % 78.3 % (16.0-70.0); PLATELET COUNT 439 TH/MM3 (150-450); RED BLOOD COUNT 3.67 MIL/MM3 (4.50-5.90); RED CELL DISTRIBUTION WIDTH 19.5 % (11.6-17.2)
[2016-08-03] MEDS: DEXT 5%-NACL 0.45% 1000 ML INJ 1,000 ML IV SCH ×2 (06:21→15:05)
[2016-08-03 06:24] LABS: HEMO FLAGS AUTO DIFF
[2016-08-03 06:44] LABS: ALT (GPT) 28 U/L (12-78); ANION GAP 8 MEQ/L (5-15); AST (GOT) 16 U/L (15-37); BICARBONATE 24.9 MEQ/L (21.0-32.0); BLOOD UREA NITROGEN 14 MG/DL (7-18); CHLORIDE 99 MEQ/L (98-107); GLOMERULAR FILTRATION RATE 92 ML/MIN (>89); POTASSIUM 3.7 MEQ/L (3.5-5.1); SODIUM (NA) 132 MEQ/L (136-145)
[2016-08-03 06:53] LABS: ALKALINE PHOSPHATASE 102 U/L (45-117); TOTAL BILIRUBIN ADULT 0.3 MG/DL (0.2-1.0)
[2016-08-03] MEDS: INSULIN ASPART SUPPLEMENTAL SCALE SQ SCH ×4 (06:56→21:00)
[2016-08-03 07:19] LABS: ACANTHOCYTES 1+ (NORMAL); OVALOCYTES 1+ (NORMAL)
[2016-08-03 07:20] LABS: KERATOCYTES OCC (NORMAL); SCAN/DIFF AUTO DIFF CONFIRMED
[2016-08-03] MEDS: SODIUM CHLORIDE 0.9% FLUSH 10 ML FLUSH IV FLUSH SCH ×2 (08:11→21:00)
--- NOTE | 2016-08-03 09:37 | EKG ---
Date Performed: 08/02/2016 Time Performed: 12:50:52 PTAGE: 80 years EKG: ATRIAL FIBRILLATION MARKED LEFT AXIS DEVIATION MODERATE INTRAVENTRICULAR CONDUCTION DELAY M ODERATE ST DEPRESSION PROLONGED QT INTERVAL ABNORMAL ECG NO PREVIOUS TRACING DOCTOR: Santos Ortiz Interpretating Date/Time 08/03/2016 09:35:59
--- NOTE | 2016-08-03 09:39 | HHI.PR ---
Subjective Remarks Patient disoriented. History not possible. Tolerating antibiotics. Surgeon following. Objective Vital Signs Date Time Temp Pulse Resp B/P Pulse Ox O2 Delivery O2 Flow Rate FiO2 08/03/16 07:56 97.1 91 17 150/83 96 08/03/16 00:00 98.6 70 17 124/62 97 08/02/16 20:00 95.8 95 18 138/71 95 08/02/16 15:30 75 14 115/71 94 Room Air 08/02/16 12:41 62 14 119/67 08/02/16 12:41 95 Nasal Cannula 2 08/02/16 12:05 14 08/02/16 11:46 97.4 67 14 102/56 94 I/O 08/02/16 08/02/16 08/02/16 08/03/16 08/03/16 08/03/16 07:00 15:00 23:00 07:00 15:00 23:00 Intake Total 624 ml 877 ml 120 ml Output Total 1000 ml Balance 624 ml -123 ml 120 ml Intake Oral 240 ml 240 ml 120 ml IV Total 384 ml 637 ml Output Urine Total 1000 ml # Voids 2 Result Diagram: 08/03/16 0504 08/03/16 0504 Imaging Last Impressions Lower Extremity CT 08/02/16 0000 Signed Impressions: Service Date/Time: Tuesday, August 02, 2016 15:18 - CONCLUSION: 1. Degraded study by motion artifact. 2. 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 3. Diffuse edema with subcutaneous air involving the plantar soft tissues. This can be seen in infections with gas producing organisms as well as air introduced via trauma. Jose Luis Welch Jr., MD Foot X-Ray 08/02/16 0000 Signed Impressions: Service Date/Time: Tuesday, August 02, 2016 12:37 - CONCLUSION: 1. Prior amputations. 2. No acute abnormality. Jose Luis Welch Jr., MD Objective Remarks GENERAL: NAD, A&Ox0 SKIN: Warm and dry. HEAD: Normocephalic. EYES: No scleral icterus. No injection or drainage. NECK: Supple, trachea midline. No JVD or lymphadenopathy. CARDIOVASCULAR: Regular rate and rhythm without murmurs, gallops, or rubs. RESPIRATORY: Breath sounds equal bilaterally. No accessory muscle use. GASTROINTESTINAL: Abdomen soft, non-tender, nondistended. MUSCULOSKELETAL: No cyanosis, or edema. Left foot bandaged. Poor lower extremity vasculature (delayed capillary refill at shins) BACK: Nontender without obvious deformity. No CVA tenderness. Medications and IVs Administered Medications Medications (Trade) Dose Ordered Sig/Shaye Route PRN Reason Start Time Stop Time Status Last Admin Dose Admin Piperacillin Sod/ Tazobactam Sod 50 ml @ 100 mls/hr Q8H IV 08/02/16 16:00 08/03/16 08:11 Dextrose/Sodium Chloride (D5W-04/04 NS 1000 ml Inj) 1,000 ml @ 84 mls/hr [id number] IV 08/02/16 15:15 08/03/16 06:21 A/P Problem List: (1) PAD (peripheral artery disease) ICD Code: I73.9 (2) Cellulitis in diabetic foot ICD Code: E13.628 (3) DM (diabetes mellitus) ICD Code: E11.9 (4) Hypertension ICD Code: I10 (5) Diabetes ICD Code: E11.9 (6) Dementia ICD Code: F03.90 (7) Atrial fibrillation ICD Code: I48.91 (8) Diabetic foot infection ICD Code: E11.69 (9) TIA (transient ischemic attack) ICD Code: G45.9 Assessment and Plan Assessment and Plan Left foot Gangrene Left 3rd toe Gangrene Diabetic Foot Infection Cellulitis of left foot PAD Leukocytosis No SIRS or Sepsis overnight Tolerating treatment Vascular Surgeon following Complication of DM2 and Poor Circulation Vancomycin and Zosyn have been ordered Toe amputation and I&D/Debridement planned Revascularization measures planned Follow vital signs Follow CBC HTN Continue baseline treatments Monitor BP Dementia Supportive Care DM2 SSI Diabetic Diet Follow blood sugars A-fib Telemetry Holding blood thinners till post op DVT Prophylaxis Surgery pending Initiate Lovenox post op Jose Manuel Oviedo MD August 03, 2016 09:39
[2016-08-03] MEDS ORDERED: BUPIVACAINE/EPINEPHRINE 0.5% 50 ML VIAL ONE (11:28)
[2016-08-03] MEDS ORDERED: ceFAZolin INJ 1,000 MG VIAL ONE (11:29)
[2016-08-03] MEDS ORDERED: GENTAMICIN SULFATE 80 MG/2 ML VIAL ONE (11:29)
[2016-08-03] MEDS ORDERED: LIDOCAINE HCL 1% 50 ML VIAL ONE (11:29)
[2016-08-03] MEDS ORDERED: GELFOAM SIZE 100 ONE (11:29)
[2016-08-03] MEDS ORDERED: THROMBIN (TOPICAL) 5,000 UNIT VIAL ONE (11:29)
[2016-08-03] MEDS ORDERED: PHENYLEPH/NS 1000 MCG/10 ML SYR IV ONE (12:00)
[2016-08-03] MEDS ORDERED: PROPOFOL 200 MG/20 ML AMP IV ONE (12:00)
[2016-08-03] MEDS: VANCOMYCIN INJ 1,000 MG in SODIUM CHLOR 0.9% 250 ML INJ 250 ML IV SCH (13:00)
--- NOTE | 2016-08-03 13:58 | MP ---
cc: KAUSHAL PERRY DATE OF SURGERY: 08/03/[address] Kaushal Perry. PROCEDURE left ankle disarticulation PREOPERATIVE DIAGNOSIS Critical limb ischemia with abscess left lower extremity with third toe gangrene. POST OP DIAGNOSIS. CLI with necrotic abscess with ascending infection. PROCEDURE The patient's left lower extremity was prepped and draped in sterile fashion after the patient was given perioperative IV antibiotics and was placed under MAC anesthesia with a popliteal nerve block. I removed the left third toe that was gangrenous and then tracked it down and made an incision from the third toe on the plantar aspect of the foot, extending towards the heel. It should be noted that initially there was not copious amounts of purulence but there did appear to be some, but the tissue all was devitalized. It should be noted that also the fourth toe was devitalized and had to be removed. Once we debrided with gentamicin and normal saline 3 liters, and to find out what was viable or not. Any muscular beds in the plantar aspects of the foot did not appear to be moving. There was a white bogginess to the skin all the way towards the calcaneus on the plantar aspect. I then extended my incision and to the level of the plantar aspect of the heel and at this point whenever I expressed there was pus coming from this aspect which I suspect there was purulence in the tendon sheaths as well as possibly in between the joints near the aspect of the heel. It should be noted that we did irrigate it with another 3 liters of normal saline. It should be noted that there was still more purulence at this point. Based on this I did ankle disarticulation with a circular incision around the level of the ankle with a scalpel and electrocautery. I dissected down and tied off all the vessels with 0-Silks as needed. I then irrigated with another 3 liters of normal saline in this area. There did not seem to be anymore purulent tissue at this level. I then placed a wound vac over the area and then gave additional 0.5% Marcaine with epinephrine, approximately another 20 ccs of local anesthetic. This was done right before we placed the wound vac in place. The patient tolerated the procedure well. DO LEVY Wild/SVETLANA /1:23 PM /1:30 PM JEIMY
[2016-08-03] MEDS ORDERED: LACTATED RINGER'S 1000 ML INJ IV SCH ×2 (14:30→15:00)
[2016-08-03] MEDS ORDERED: ONDANSETRON HCL 4 MG/2 ML VIAL IV PUSH PRN (14:30)
[2016-08-03] MEDS ORDERED: POTASSIUM CHLOR 20 MEQ/100 ML x 1 BAG IV PRN (14:30)
[2016-08-03] MEDS ORDERED: POTASSIUM CHLOR 20 MEQ 100 ML x 2 BAGS IV PRN (14:30)
[2016-08-03] MEDS ORDERED: MAGNESIUM SULFATE 1 GM/100 ML IV PRN (14:45)
--- NOTE | 2016-08-03 14:57 | PD.VS.PN ---
Subjective Subjective/Hospital Course Status post left ankle disarticulation. Objective Vitals/I&O Date Time Temp Pulse Resp B/P Pulse Ox O2 Delivery O2 Flow Rate FiO2 08/03/16 14:30 97.5 82 16 134/70 100 Nasal Cannula 2 08/03/16 14:15 82 14 141/76 99 Nasal Cannula 2 08/03/16 14:00 69 16 115/73 99 Simple Mask 6 08/03/16 13:45 97.5 78 17 151/73 100 Simple Mask 6 08/03/16 11:50 97.4 60 19 123/68 95 08/03/16 07:56 97.1 91 17 150/83 96 08/03/16 00:00 98.6 70 17 124/62 97 08/02/16 20:00 95.8 95 18 138/71 95 08/02/16 15:30 75 14 115/71 94 Room Air 08/03/16 08/03/16 08/03/16 07:00 15:00 23:00 Intake Total 877 ml 1173 ml Output Total 1000 ml 600 ml Balance -123 ml 573 ml Physical Exam left leg stump with wound vac in place. Laboratory Laboratory Tests Test 08/02/16 08/03/16 18:09 05:04 Lactic Acid Level 1.0 White Blood Count 10.0 Red Blood Count 3.67 Hemoglobin 8.7 Hematocrit 26.2 Mean Corpuscular Volume 71.5 Mean Corpuscular Hemoglobin 23.7 Mean Corpuscular Hemoglobin 33.1 Concent Red Cell Distribution Width 19.5 Platelet Count 439 Mean Platelet Volume 6.9 Neutrophils (%) (Auto) 78.3 Lymphocytes (%) (Auto) 10.9 Monocytes (%) (Auto) 8.8 Eosinophils (%) (Auto) 1.7 Basophils (%) (Auto) 0.3 Neutrophils # (Auto) 7.8 Lymphocytes # (Auto) 1.1 Monocytes # (Auto) 0.9 Eosinophils # (Auto) 0.2 Basophils # (Auto) 0.0 CBC Comment AUTO DIFF Differential Comment AUTO DIFF CONFIRMED Ovalocytes 1+ Acanthocytes 1+ Keratocytes OCC Sodium Level 132 Potassium Level 3.7 Chloride Level 99 Carbon Dioxide Level 24.9 Anion Gap 8 Blood Urea Nitrogen 14 Creatinine 0.81 Estimat Glomerular Filtration 92 Rate Random Glucose 95 Calcium Level 8.9 Total Bilirubin 0.3 Aspartate Amino Transf 16 (AST/SGOT) Alanine Aminotransferase 28 (ALT/SGPT) Alkaline Phosphatase 102 Total Protein 7.4 Albumin 2.6 Date/Time Procedure Status Source Growth 08/02/16 15:00 Gram Stain - Final Resulted Wound Foot 08/02/16 15:00 Wound Culture Resulted Wound Foot Pending 08/02/16 12:20 Aerobic Blood Culture - Preliminary Resulted Blood Peripheral NO GROWTH IN 1 DAY 08/02/16 12:20 Anaerobic Blood Culture - Preliminary Resulted Blood Peripheral NO GROWTH IN 1 DAY Imaging Last 48 hours Impressions Lower Extremity CT 08/02/16 0000 Signed Impressions: Service Date/Time: Tuesday, August 02, 2016 15:18 - CONCLUSION: 1. Degraded study by motion artifact. 2. 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 3. Diffuse edema with subcutaneous air involving the plantar soft tissues. This can be seen in infections with gas producing organisms as well as air introduced via trauma. Jose Luis Welch Jr., MD Foot X-Ray 08/02/16 0000 Signed Impressions: Service Date/Time: Tuesday, August 02, 2016 12:37 - CONCLUSION: 1. Prior amputations. 2. No acute abnormality. 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 Findings during 3rd toe amputation is ischemic changes to fourth toe and all of plantar tissues with extension of an abscess to the heel with purulence with expression. Ankle disarticulation at this point with possible BKA revision and femoral endarterectomy in 48 hours if stable. Otherwise continue antibiotics and will adjust based on culture and sensitivity. David Bhardwaj DO, FACS Application Infrastructure Engineer of Vascular Surgery POLLY/David Barry DO August 03, 2016 14:57
[2016-08-03] MEDS: METFORMIN HOLD POST IV CONTRAST SCH (15:20)
[2016-08-03] MEDS ORDERED: DO NOT ADM ANY ANTICOAGULANT DRUGS PRN (16:15)
[2016-08-03] MEDS: ENOXAPARIN SODIUM 40 MG/0.4 ML SYRINGE SQ SCH (17:14)
[2016-08-04] VITALS (7 sets, daily range): BP systolic 130–146; BP diastolic 62–66; PULSE 71–94; RESP 18–20; TEMP 97.7–98.1; O2SAT 97–100
[2016-08-04] MEDS: PIPERACIL-TAZO 3.375 GM PREMIX 50 ML IV SCH ×4 (00:26→23:51)
[2016-08-04] MEDS: DEXT 5%-NACL 0.45% 1000 ML INJ 1,000 ML IV SCH ×4 (03:00→23:51)
[2016-08-04 06:17] LABS: HEMATOCRIT 24.5 % (39.0-51.0); MEAN CELL VOLUME 71.6 FL (80.0-100.0); MEAN CORPUSCULAR HEMOGLOBIN 23.8 PG (27.0-34.0); MEAN CORPUSCULAR HGB CONC 33.2 % (32.0-36.0); PLATELET COUNT 423 TH/MM3 (150-450); RED BLOOD COUNT 3.42 MIL/MM3 (4.50-5.90); RED CELL DISTRIBUTION WIDTH 19.5 % (11.6-17.2); WHITE BLOOD COUNT 8.8 TH/MM3 (4.0-11.0)
[2016-08-04 06:33] LABS: REVIEW FLAG FINAL
[2016-08-04] MEDS: INSULIN ASPART SUPPLEMENTAL SCALE SQ SCH ×4 (08:00→21:24)
[2016-08-04] MEDS: SODIUM CHLORIDE 0.9% FLUSH 10 ML FLUSH IV FLUSH SCH ×2 (09:00→21:25)
--- NOTE | 2016-08-04 11:47 | HHI.PR ---
Subjective Remarks Improved cognition today. Patient is hungry when seen. Tolerating antibiotics. Surgeon following. Objective Vital Signs Date Time Temp Pulse Resp B/P Pulse Ox O2 Delivery O2 Flow Rate FiO2 08/04/16 04:00 97.8 75 18 141/62 97 08/04/16 01:00 83 08/04/16 00:00 71 08/04/16 00:00 98.1 81 18 130/66 98 08/03/16 23:00 96 08/03/16 22:00 96 08/03/16 21:00 64 08/03/16 20:00 98.1 80 20 123/72 98 08/03/16 20:00 81 08/03/16 19:00 79 08/03/16 17:25 98.0 87 20 122/77 98 08/03/16 15:20 98.0 88 18 136/74 08/03/16 14:30 97.5 82 16 134/70 100 Nasal Cannula 2 08/03/16 14:15 82 14 141/76 99 Nasal Cannula 2 08/03/16 14:00 69 16 115/73 99 Simple Mask 6 08/03/16 13:45 97.5 78 17 151/73 100 Simple Mask 6 08/03/16 11:50 97.4 60 19 123/68 95 I/O 08/03/16 08/03/16 08/03/16 08/04/16 08/04/16 08/04/16 07:00 15:00 23:00 07:00 15:00 23:00 Intake Total 877 ml 1173 ml 125 ml 1413 ml Output Total 1000 ml 600 ml 1200 ml Balance -123 ml 573 ml 125 ml 213 ml Intake Oral 240 ml 120 ml 360 ml IV Total 637 ml 453 ml 125 ml 1053 ml Other 600 ml Output Urine Total 1000 ml 500 ml 1200 ml Estimated Blood Loss 100 ml # Voids 2 # Bowel Movements 0 0 Result Diagram: 08/04/16 0550 08/03/16 0504 Objective Remarks GENERAL: NAD, A&Ox0 SKIN: Warm and dry. HEAD: Normocephalic. EYES: No scleral icterus. No injection or drainage. NECK: Supple, trachea midline. No JVD or lymphadenopathy. CARDIOVASCULAR: Regular rate and rhythm without murmurs, gallops, or rubs. RESPIRATORY: Breath sounds equal bilaterally. No accessory muscle use. GASTROINTESTINAL: Abdomen soft, non-tender, nondistended. MUSCULOSKELETAL: No cyanosis, or edema. Left foot bandaged. BACK: Nontender without obvious deformity. No CVA tenderness. A/P Problem List: (1) PAD (peripheral artery disease) ICD Code: I73.9 (2) Cellulitis in diabetic foot ICD Code: E13.628 (3) DM (diabetes mellitus) ICD Code: E11.9 (4) Hypertension ICD Code: I10 (5) Diabetes ICD Code: E11.9 (6) Dementia ICD Code: F03.90 (7) Atrial fibrillation ICD Code: I48.91 (8) Diabetic foot infection ICD Code: E11.69 (9) TIA (transient ischemic attack) ICD Code: G45.9 Assessment and Plan Assessment and Plan 80 year old male. Improving cognition. PT is ordered for today. Further monitoring of foot infection must occur. Antibiotics ongoing. Left foot Gangrene Left 3rd toe Gangrene Diabetic Foot Infection Cellulitis of left foot PAD Leukocytosis No SIRS or Sepsis overnight Tolerating treatment Vascular Surgeon following Complication of DM2 and Poor Circulation Vancomycin and Zosyn have been ordered Toe amputation and I&D/Debridement performed 08/03/16 Revascularization measures planned Follow vital signs Follow CBC HTN Continue baseline treatments Monitor BP Dementia Supportive Care DM2 SSI Diabetic Diet Follow blood sugars A-fib Telemetry Holding blood thinners till post op DVT Prophylaxis Surgery pending Initiate Lovenox post op Jose Manuel Oviedo MD August 04, 2016 11:47
[2016-08-04] MEDS: VANCOMYCIN INJ 1,000 MG in SODIUM CHLOR 0.9% 250 ML INJ 250 ML IV SCH (13:35)
[2016-08-04] MEDS: ACETAMINOPHEN/HYDROcodone 325 MG/5 MG TAB PO PRN ×3 (13:41→23:51)
[2016-08-04 17:09] LABS: BICARBONATE 26.1 MEQ/L (21.0-32.0); POTASSIUM 3.8 MEQ/L (3.5-5.1)
--- NOTE | 2016-08-04 17:21 | PD.VS.PN ---
Subjective Subjective/Hospital Course Status post left ankle disarticulation. Objective Vitals/I&O Date Time Temp Pulse Resp B/P Pulse Ox O2 Delivery O2 Flow Rate FiO2 08/04/16 13:22 97.7 85 18 136/66 100 08/04/16 11:00 92 08/04/16 04:00 97.8 75 18 141/62 97 08/04/16 01:00 83 08/04/16 00:00 71 08/04/16 00:00 98.1 81 18 130/66 98 08/03/16 23:00 96 08/03/16 22:00 96 08/03/16 21:00 64 08/03/16 20:00 98.1 80 20 123/72 98 08/03/16 20:00 81 08/03/16 19:00 79 08/03/16 17:25 98.0 87 20 122/77 98 08/04/16 08/04/16 08/04/16 07:00 15:00 23:00 Intake Total 1413 ml Output Total 1200 ml Balance 213 ml Physical Exam Oriented that he is in the hospital otherwise baseline confusion. Left ankle disartic site is clean. Laboratory Laboratory Tests Test 08/04/16 08/04/16 05:50 16:11 White Blood Count 8.8 Red Blood Count 3.42 Hemoglobin 8.1 Hematocrit 24.5 Mean Corpuscular Volume 71.6 Mean Corpuscular Hemoglobin 23.8 Mean Corpuscular Hemoglobin 33.2 Concent Red Cell Distribution Width 19.5 Platelet Count 423 Mean Platelet Volume 6.9 Sodium Level 134 Potassium Level 3.8 Chloride Level 100 Carbon Dioxide Level 26.1 Anion Gap 8 Blood Urea Nitrogen 9 Creatinine 0.76 Estimat Glomerular Filtration 99 Rate Random Glucose 166 Calcium Level 8.3 Date/Time Procedure Status Source Growth 08/03/16 13:00 Gram Stain - Final Resulted Wound Toe 08/03/16 13:00 Wound Culture - Preliminary Resulted S. Aureus Mrsa 08/03/16 13:00 Fungal Smear - Final Resulted Wound Toe NO FUNGAL ELEMENTS SEEN. 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 POD#1 status post Left ankle disarticulation. Neurologically intact. WBC normalized. Cultures pending. Continue IV antibiotics and wet-to-dry dressing for stump. possible left femoral endarterectomy +/_ completion BKA monday Under SPINAL and MAC. High risk of worsening of dementia with aspiration with GETA. Will re-examine in am. Patients understands status of patient and will be the one to give consent for procedure. David Bhardwaj DO, FACS Log Driver of Vascular Surgery /David Barry DO August 04, 2016 17:21
[2016-08-04] MEDS: ENOXAPARIN SODIUM 40 MG/0.4 ML SYRINGE SQ SCH (17:44)
[2016-08-05] VITALS (10 sets, daily range): BP systolic 115–151; BP diastolic 65–113; PULSE 87–128; RESP 16–20; TEMP 97.4–98.2; O2SAT 97–99
[2016-08-05] MEDS: DEXT 5%-NACL 0.45% 1000 ML INJ 1,000 ML IV SCH (03:00)
[2016-08-05] MEDS: INSULIN ASPART SUPPLEMENTAL SCALE SQ SCH ×5 (06:22→21:00)
[2016-08-05] MEDS: PIPERACIL-TAZO 3.375 GM PREMIX 50 ML IV SCH ×2 (08:47→17:30)
[2016-08-05 08:51] LABS: HEMATOCRIT 25.1 % (39.0-51.0); MEAN CELL VOLUME 71.8 FL (80.0-100.0); MEAN CORPUSCULAR HEMOGLOBIN 23.7 PG (27.0-34.0); PLATELET COUNT 447 TH/MM3 (150-450); RED CELL DISTRIBUTION WIDTH 19.4 % (11.6-17.2); WHITE BLOOD COUNT 10.1 TH/MM3 (4.0-11.0)
[2016-08-05 08:55] LABS: REVIEW FLAG FINAL
[2016-08-05 09:17] LABS: BICARBONATE 28.3 MEQ/L (21.0-32.0); POTASSIUM 3.6 MEQ/L (3.5-5.1); VANCOMYCIN TROUGH 4.2 MCG/ML (5.0-10.0)
--- NOTE | 2016-08-05 11:18 | PD.VS.PN ---
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 Interval History: Non complicated. Labs: Laboratory Results Test 08/02/16 08/05/16 12:20 08:35 Prothromb Time International 1.1 RATIO Ratio White Blood Count 10.1 TH/MM3 (4.0-11.0) Red Blood Count 3.50 MIL/MM3 (4.50-5.90) Hemoglobin 8.3 GM/DL (13.0-17.0) Hematocrit 25.1 % (39.0-51.0) Mean Corpuscular Volume 71.8 FL (80.0-100.0) Mean Corpuscular Hemoglobin 23.7 PG (27.0-34.0) Mean Corpuscular Hemoglobin 33.0 % Concent (32.0-36.0) Red Cell Distribution Width 19.4 % (11.6-17.2) Platelet Count 447 TH/MM3 (150-450) Mean Platelet Volume 6.6 FL (7.0-11.0) Sodium Level 134 MEQ/L (136-145) Potassium Level 3.6 MEQ/L (3.5-5.1) Chloride Level 101 MEQ/L (98-107) Carbon Dioxide Level 28.3 MEQ/L (21.0-32.0) Anion Gap 5 MEQ/L (5-15) Blood Urea Nitrogen 8 MG/DL (7-18) Random Glucose 119 MG/DL (74-106) Calcium Level 8.4 MG/DL (8.5-10.1) Blood: Type and cross Imaging: Last Impressions Lower Extremity CT 08/02/16 0000 Signed Impressions: Service Date/Time: Tuesday, August 02, 2016 15:18 - CONCLUSION: 1. Degraded study by motion artifact. 2. 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 3. Diffuse edema with subcutaneous air involving the plantar soft tissues. This can be seen in infections with gas producing organisms as well as air introduced via trauma. Jose Luis Welch Jr., MD Foot X-Ray 08/02/16 0000 Signed Impressions: Service Date/Time: Tuesday, August 02, 2016 12:37 - CONCLUSION: 1. Prior amputations. 2. No acute abnormality. Jose Luis Welch Jr., MD Post-operative destination: [facility] Operative site marked: Yes Consent: Informed consent has been obtained from Jeffrey Marcos. I have explained the procedure in detail and discussed the risks, benefits, and potential complications. All questions have been answered. Patient with baseline dementia so discussed with and son. David Bhardwaj DO August 05, 2016 11:18
[2016-08-05] MEDS ORDERED: LIDOCAINE 2%/EPINEPHrine 1:100,000 30ML MDV NERV BLOCK ONE (11:41)
[2016-08-05] MEDS ORDERED: ROPIVACAINE 0.5% PF INJ 30 ML VIAL NERV BLOCK ONE (11:41)
[2016-08-05] MEDS ORDERED: HEPARIN SODIUM - IV 10,000 UNITS/10 ML VIAL ONE (11:51)
[2016-08-05] MEDS ORDERED: VANCOMYCIN HCL 1000 MG VIAL ONE ×2 (11:52→15:30)
[2016-08-05] MEDS ORDERED: THROMBIN (TOPICAL) 20,000 UNIT SPRAY KIT ONE (11:52)
[2016-08-05] MEDS ORDERED: SODIUM CHLOR 0.9% 250 ML INJ 250 ML ONE (11:52)
[2016-08-05] MEDS ORDERED: PROTAMINE SULFATE 50 MG/5 ML VIAL ONE (11:52)
[2016-08-05] MEDS ORDERED: BUPIVACAINE/EPINEPHRINE 0.5% 50 ML VIAL ONE (11:52)
[2016-08-05] MEDS ORDERED: PROPOFOL 200 MG/20 ML AMP IV ONE (12:00)
[2016-08-05] MEDS ORDERED: NORMOSOL R INJ 1,000 ML IV ONE (12:00)
[2016-08-05] MEDS ORDERED: SODIUM CHLOR 0.9% 250 ML INJ 250 ML IV ONE (12:00)
[2016-08-05] MEDS ORDERED: SODIUM CHLORID 0.9% 500 ML INJ 500 ML IV ONE (12:00)
--- NOTE | 2016-08-05 12:47 | HHI.PR ---
Subjective Remarks Pain has better control. Possible BKA today. No new complaints. No sepsis. Objective Vital Signs Date Time Temp Pulse Resp B/P Pulse Ox O2 Delivery O2 Flow Rate FiO2 08/05/16 08:22 97.4 122 19 146/113 99 08/05/16 04:14 97.4 93 20 145/81 97 08/05/16 00:00 97.6 92 20 128/65 98 08/04/16 20:00 87 08/04/16 19:47 98.1 94 20 146/66 98 08/04/16 13:22 97.7 85 18 136/66 100 I/O 08/04/16 08/04/16 08/04/16 08/05/16 08/05/16 08/05/16 07:00 15:00 23:00 07:00 15:00 23:00 Intake Total 1413 ml 633 ml Output Total 1200 ml Balance 213 ml 633 ml Intake Oral 360 ml 120 ml IV Total 1053 ml 513 ml Output Urine Total 1200 ml # Voids 2 0 2 # Bowel Movements 0 0 Result Diagram: 08/05/16 0835 08/05/16 0835 Objective Remarks GENERAL: NAD, A&Ox0 SKIN: Warm and dry. HEAD: Normocephalic. EYES: No scleral icterus. No injection or drainage. NECK: Supple, trachea midline. No JVD or lymphadenopathy. CARDIOVASCULAR: Regular rate and rhythm without murmurs, gallops, or rubs. RESPIRATORY: Breath sounds equal bilaterally. No accessory muscle use. GASTROINTESTINAL: Abdomen soft, non-tender, nondistended. MUSCULOSKELETAL: No cyanosis, or edema. Left foot bandaged. BACK: Nontender without obvious deformity. No CVA tenderness. A/P Problem List: (1) PAD (peripheral artery disease) ICD Code: I73.9 (2) Cellulitis in diabetic foot ICD Code: E13.628 (3) DM (diabetes mellitus) ICD Code: E11.9 (4) Hypertension ICD Code: I10 (5) Diabetes ICD Code: E11.9 (6) Dementia ICD Code: F03.90 (7) Atrial fibrillation ICD Code: I48.91 (8) Diabetic foot infection ICD Code: E11.69 (9) TIA (transient ischemic attack) ICD Code: G45.9 Assessment and Plan Assessment and Plan 80 year old male. Now at baseline cognition. PT is ordered. Possible vascular bypass vs. BKA today Left foot Gangrene Left 3rd toe Gangrene Diabetic Foot Infection Cellulitis of left foot PAD Leukocytosis No SIRS or Sepsis overnight Tolerating treatment Vascular Surgeon following Complication of DM2 and Poor Circulation Vancomycin and Zosyn have been ordered Toe amputation and I&D/Debridement performed 08/03/16 Revascularization measures planned Follow vital signs Follow CBC HTN Continue baseline treatments Monitor BP Dementia Supportive Care DM2 SSI Diabetic Diet Follow blood sugars A-fib Telemetry Holding blood thinners till post op DVT Prophylaxis Surgery pending Initiate Lovenox post op Jose Manuel Oviedo MD August 05, 2016 12:47
[2016-08-05] MEDS: VANCOMYCIN INJ 1,000 MG in SODIUM CHLOR 0.9% 250 ML INJ 250 ML IV SCH (13:30)
[2016-08-05] MEDS ORDERED: GELFOAM SIZE 100 OTHER ONE (14:53)
[2016-08-05] MEDS ORDERED: LACTATED RINGER'S 1000 ML INJ 1,000 ML IV SCH (15:51)
--- NOTE | 2016-08-05 15:51 | HHI.PR ---
Immediate Post Op Note Procedure Date: August 05, 2016 Pre Op Diagnosis: (1) Cellulitis in diabetic foot (2) Diabetic foot infection (3) PAD (peripheral artery disease) Post Op Diagnosis: (1) PAD (peripheral artery disease) (2) DM (diabetes mellitus) (3) Diabetic foot infection Surgeon: David Bhardwaj Project Manager Finance(s): Dayami Peck Procedure: left femoral endarterectomy and left leg I&D with wound vac placement. Findings: High grade calcific plaque left common femoral artery. Additional Information: NA Complications: None Specimen(s) removed: Left femoral artery plaque. Estimated blood loss: 700cc Anesthesia: MAC, Regional Block, Local Drains: None Fluids: 2000 cc and 2 units prbc and 1 unit ffp and 1 pack of platelets IVF, PRBC, FFP Tourniquet time (min at mmHg) NA Patient to: PACU Patient Condition: Good Implant/Devices: Other Date/Time of Procedure: Other David Bhardwaj DO August 05, 2016 15:51
[2016-08-05] MEDS ORDERED: SODIUM CHLORIDE 0.9% FLUSH 10 ML FLUSH IV FLUSH PRN (16:00)
[2016-08-05] MEDS ORDERED: POTASSIUM CHLOR 20 MEQ PREMIX 100 ML IV PRN (16:00)
[2016-08-05] MEDS ORDERED: Post-op Orders (for Pharmacy) MISC OTHER ONE (16:00)
[2016-08-05] MEDS ORDERED: DEXTROSE 50% IN WATER 50 ML VIAL(D50) IV PRN (16:15)
[2016-08-05] MEDS ORDERED: BISACODYL 10 MG SUPP RECTAL PRN (16:15)
[2016-08-05] MEDS ORDERED: GLUCAGON 1 MG/ML VIAL OTHER PRN (16:15)
[2016-08-05] MEDS ORDERED: SOD PHOSPHATE/SOD BIPHOSPHATE (ADULT) ENEMA 133ML RECTAL PRN (16:15)
[2016-08-05] MEDS ORDERED: DO NOT ADM ANY ANTICOAGULANT DRUGS PRN (16:45)
[2016-08-05 17:39] LABS: HEMATOCRIT 24.7 % (39.0-51.0); REVIEW FLAG FINAL
[2016-08-05] MEDS: ENOXAPARIN SODIUM 40 MG/0.4 ML SYRINGE SQ SCH (17:50)
[2016-08-05] MEDS: RESP: ALBUTEROL 2.5 MG/IPRATROPIUM 0.5 MG NEB (SCH) NEB (20:00)
--- NOTE | 2016-08-05 20:57 | PD.VS.PN ---
Subjective Procedure(s): left common femoral artery endarterectomy Left Foot I&D with wound vac placement Subjective/Hospital Course Status post left ankle disarticulation POD#2 Subsequent revascularization of left common femoral artery. Objective Vascular: left groin with vac in place. Left Popliteal with strong signal. Laboratory Laboratory Tests Test 08/05/16 08/05/16 08/05/16 08/05/16 08:35 13:05 14:55 16:22 White Blood Count 10.1 Red Blood Count 3.50 Hemoglobin 8.3 8.5 Hematocrit 25.1 24.7 Mean Corpuscular Volume 71.8 Mean Corpuscular Hemoglobin 23.7 Mean Corpuscular Hemoglobin 33.0 Concent Red Cell Distribution Width 19.4 Platelet Count 447 Mean Platelet Volume 6.6 Sodium Level 134 Potassium Level 3.6 Chloride Level 101 Carbon Dioxide Level 28.3 Anion Gap 5 Blood Urea Nitrogen 8 Creatinine 0.80 Estimat Glomerular Filtration 93 Rate Random Glucose 119 Calcium Level 8.4 Vancomycin Level Trough 4.2 Blood Type A POSITIVE Antibody Screen NEGATIVE Crossmatch Leukocyte-Reduced Red Blood Cells Blood Bank Comment Date/Time Procedure Status Source Growth 08/03/16 13:00 Gram Stain - Final Resulted Wound Toe 08/03/16 13:00 Wound Culture - Preliminary Resulted S. Aureus Mrsa Gram Negative Marcial 08/03/16 13:00 Fungal Smear - Final Resulted Wound Toe NO FUNGAL ELEMENTS SEEN. 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 Underwent left ankle disarticulation and left femoral endarterectomy. Completion BKA left lower extremity next week. August resume. YARELI hennessy in am. David Bhardwaj DO, FACS Chainstitch Felled Seam Operator of Vascular Surgery POLLY/David Barry DO August 05, 2016 20:57
[2016-08-05] MEDS: SENNOSIDES 8.6 MG TAB PO SCH (21:00)
[2016-08-05] MEDS: SODIUM CHLORIDE 0.9% FLUSH 10 ML FLUSH IV FLUSH SCH (21:00)
[2016-08-05] MEDS: DOCUSATE SODIUM 100 MG CAP PO SCH (21:00)
--- NOTE | 2016-08-05 21:39 | MP ---
cc: KAUSHAL BHARDWAJ DATE OF SURGERY 08/05/16 PREOPERATIVE DIAGNOSIS Critical limb ischemia left lower extremity with history of septic foot. PROCEDURE 1. Left femoral endarterectomy 2. Incision and debridement left ankle stump with wound VAC placement. SURGEON Dr. Santos Bhardwaj. SHOT BLASTER Sheeba Combs. IV FLUIDS Two liters of crystalloid. Two units of packed red blood cells. One pack of platelets and one pack of fresh frozen plasma ESTIMATED BLOOD LOSS 700 mL URINE OUTPUT NA COMPLICATIONS None. DISPOSITION To PACU PROCEDURE IN DETAIL The patient's was given femoral and sciatic nerve block and under MAC anesthesia. I made a linear incision over the left groin with a scalpel and electrocautery. I dissected down to the external iliac artery, common femoral, superficial and profunda femoral arteries. I placed vessel loops around all of these to get control. I removed any periadventitial tissue. It should be noted there was a pulsatility in the common femoral artery proximally that was a decreased slightly in the profunda and SFA. I heparinized the patient to an ACT of greater than 200. It took approximately a total of 11,000 units of heparin in order to get his ACT at the appropriate range. We then used pediatric profunda clamps to clamp the profunda and superficial femoral artery and an angled profunda clamp in order to clamp the external iliac artery. It should be noted that I performed an arteriotomy with 11 blade and Massey scissors. It should be noted that there was a calcified coral reef appearing near total occlusion of the distal external proximal common femoral artery. This is removed with a [place] spatula. I irrigated the back wall and removed any fragments. I then used a 5-0 on a BD1 in order to sew a 9 cm x 1 cm patch lengthwise. It should be noted that I did divide the patch in 1 cm. It should be noted that at the end of endarterectomy, I back bled the profunda and superficial femoral artery and forward bled the common femoral artery via the external. It should be noted that after the procedure there was copious bleeding underneath the profunda, but it was calcified lesion that must of punctured the profunda femoral artery where I placed my clamp. I used multiple 5-0 and 6-0 Prolene with pledgets in order to try to control the bleeding at this location. I then used multiple Prolene along the length of the patch. It should be noted that we did give two units of packed red blood cells, FFP and platelets as the patient was somewhat coagulopathic. I used FloSeal and thrombin Gelfoam as well as Surgicel to help out with hemostasis. By the end, the left groin was dry with no more bleeding. There were audible signals in the popliteal artery, profunda and superficial femoral arteries. It should be noted that again this patient was somewhat coagulopathic. We irrigated the left lower extremity stump separate after we had closed the left groin with a 2-0 and 3-0 Vicryl and a 4-0 Monocryl stitch. We placed a Provena wound VAC over the left groin and then a regular wound VAC over the left lower extremity stump. The patient tolerated the procedure well and was taken to the PACU at the end of the case. DO LEVY Wild/ /3:34 PM /9:26 PM
[2016-08-06] VITALS (35 sets, daily range): BP systolic 120–156; BP diastolic 67–98; PULSE 64–147; RESP 18–20; TEMP 97.8–98.5; O2SAT 95–100
[2016-08-06] MEDS: PIPERACIL-TAZO 3.375 GM PREMIX 50 ML IV SCH ×4 (00:18→23:40)
[2016-08-06] MEDS ORDERED: METOPROLOL TARTRATE 5 MG/5 ML VIAL IV PUSH ONE (02:45)
[2016-08-06] MEDS: DEXT 5%-NACL 0.45% 1000 ML INJ 1,000 ML IV SCH ×3 (03:00→16:00)
[2016-08-06] MEDS: INSULIN ASPART SUPPLEMENTAL SCALE SQ SCH ×4 (06:40→21:59)
--- NOTE | 2016-08-06 07:14 | PD.CONS ---
[facility] Service Critical Care Medicine Consult Requested By Primary Care Physician Gorge Robb MD History of Present Illness THIS NOTE IS INTENDED FOR 08/05/2016 Mr. Marcos is a 80 year old male. He is here today due to worsening of his left foot wound, now with signs of infection and gangrene. He has chronic and poor lower extremity blood flow from PAD related to a history of smoking and DM2. As an outpatient he was planned for a third toe amputation and revascularization in 3 days and has been on levaquin and bactrim, but due to the worsening he came into the hospital and may have earlier intervention. History is obtained from his as he has dementia and is not fully oriented enough to provide a good history. History is obtained from his as he has dementia and is not fully oriented enough to provide a good history. On 08/05 the patient underwent left ankle disarticulation, would EBL approximately of 700 cc, requiring transfusion of packed red blood cells. Critical care medicine is consulted. ROS - General Review of Systems ROS Limitations: Altered Mental Status, Poor Historian Constitutional: DENIES: Fever, Chills Musculoskeletal: DENIES: Joint pain Foot Pain PFSH Past Family Social History Past Medical History DM2 Dementia PAD HTN CAD A-fib Hyperlipidemia Past Surgical History Prior foot surgeries and two removals bilaterally. Reported Medications Reported Meds & Active Scripts Active Reported [place] (Hydrocodone-Acetaminophen) 5-325 mg Tab 1 Tab PO Q6H PRN Fleet Enema Rectal (Sodium Phosphates Rectal) 7-19 Gm/118 Ml Enem 1 Applic RECTAL DAILY PRN Glucerna Shake (Nutritional Supplements) 1 Liq Liq 1 Can PO WITH MEALS Bactrim DS (Sulfamethoxazole-Trimethoprim) 800-160 Mg Tab 1 Tab PO BID Stress Formula (Multiple Vitamins W/ Minerals) 1 Tab 1 Tab PO DAILY Levaquin (Levofloxacin) 500 Mg Tab 500 Mg PO DAILY 7 Days Prosight (Multiple Vitamins W/ Minerals) 1 Tab Tab 1 Tab PO DAILY Aspirin 81 Mg Tabdr 81 Mg PO DAILY Thera-M (Multiple Vitamins W/ Minerals) 1 Tab 1 Tab PO DAILY Potassium Chloride ER (Potassium Chloride) 10 Meq Tab 10 Meq PO TID Milk of Magnesia Liq (Magnesium Hydroxide) 400 Mg/5 Ml Susp 30 Ml PO DAILY PRN Metformin (Metformin HCl) 1,000 Mg Tab 1,000 Mg PO BIDPC With meals Magnesium Oxide 400 Mg Tab 400 Mg PO DAILY Lexapro (Escitalopram Oxalate) 10 Mg Tab 10 Mg PO DAILY Glipizide 5 Mg Tab 5 Mg PO DAILY Take 30 minutes before a meal Gabapentin 300 Mg Cap 300 Mg PO BID Furosemide 20 Mg Tab 20 Mg PO DAILY Ferrous Sulfate 325 Mg Tab 325 Mg PO DAILY Dulcolax Supp (Bisacodyl) 10 Mg Supp 10 Mg RECTAL DAILY PRN Diltiazem ER 24 HR 180 Mg Caper 180 Mg PO DAILY Clopidogrel (Clopidogrel Bisulfate) 75 Mg Tab 75 Mg PO DAILY Carvedilol 12.5 Mg Tab 12.5 Mg PO BID Atorvastatin (Atorvastatin Calcium) 40 Mg Tab 40 Mg PO HS Acetaminophen 325 Mg Tab 650 Mg PO Q4HR PRN Allergies: Coded Allergies: No Known Allergies (Verified , 08/02/16) Active Ordered Medications Administered Medications Medications (Trade) Dose Ordered Sig/Shaye Route PRN Reason Start Time Stop Time Status Last Admin Dose Admin Piperacillin Sod/ Tazobactam Sod 50 ml @ 100 mls/hr Q8H IV 08/02/16 16:00 08/02/16 16:14 Dextrose/Sodium Chloride (D5W-1 NS 1000 ml Inj) 1,000 ml @ 84 mls/hr [id number] IV 08/02/16 15:15 08/02/16 16:13 Family History Unable to obtain Social History History of smoking History of alcohol abuse No history of drug abuse (currently uses none of the above) Physical Exam Vital Signs Vital Signs Date Time Temp Pulse Resp B/P Pulse Ox O2 Delivery O2 Flow Rate FiO2 08/06/16 06:00 106 08/06/16 06:00 106 08/06/16 05:00 102 08/06/16 05:00 102 08/06/16 04:15 98.1 92 20 156/98 95 08/06/16 04:00 92 08/06/16 04:00 92 08/06/16 03:00 106 08/06/16 03:00 106 08/06/16 02:00 125 08/06/16 02:00 123 08/06/16 01:00 147 08/06/16 01:00 122 08/06/16 00:05 98.2 116 18 131/71 95 08/06/16 00:00 122 08/06/16 00:00 108 08/05/16 23:00 102 08/05/16 23:00 106 08/05/16 22:00 110 08/05/16 22:00 112 08/05/16 21:00 122 08/05/16 21:00 102 08/05/16 20:00 108 08/05/16 20:00 98.1 128 20 151/91 99 08/05/16 19:30 97 16 159/72 99 Nasal Cannula 2 08/05/16 19:15 98.1 108 20 151/91 99 08/05/16 19:00 118 08/05/16 18:15 93 16 153/78 99 Nasal Cannula 2 08/05/16 17:15 88 16 138/72 99 Nasal Cannula 2 08/05/16 17:00 91 16 131/65 99 Nasal Cannula 2 08/05/16 16:45 81 16 134/61 99 Nasal Cannula 2 08/05/16 16:30 87 16 115/77 99 Nasal Cannula 2 08/05/16 16:30 98.2 87 16 115/77 99 08/05/16 16:20 98.2 80 16 123/65 100 Nasal Cannula 2 08/05/16 08:22 97.4 122 19 146/113 99 Physical Exam GENERAL: Elderly gentleman, appropriately responsive on nasal cannula. SKIN: Warm and dry. Left lower extremity dressing intact with wound VAC, left femoral groin dressing intact HEAD: Atraumatic. Normocephalic. EYES: Pupils equal and round. No scleral icterus. No injection or drainage. ENT: No nasal bleeding or discharge. Mucous membranes pink and moist. NECK: Trachea midline. No JVD. CARDIOVASCULAR: Normal rate, regular rhythm. RESPIRATORY: No accessory muscle use. Clear to auscultation. Breath sounds equal bilaterally. Nasal cannula 2 L/m GASTROINTESTINAL: Abdomen soft, non-tender, nondistended. No guarding. MUSCULOSKELETAL: Extremities without clubbing, cyanosis, or edema. S/P left ankle disarticulation dressing intact. NEUROLOGICAL: Awake and alert. RASS 0. No gross focal/sensory deficits. Follows commands in all 4 extremities. Laboratory Laboratory Tests Test 08/05/16 08/05/16 08/05/16 08/05/16 08:35 13:05 14:55 16:22 White Blood Count 10.1 Red Blood Count 3.50 Hemoglobin 8.3 8.5 Hematocrit 25.1 24.7 Mean Corpuscular Volume 71.8 Mean Corpuscular Hemoglobin 23.7 Mean Corpuscular Hemoglobin 33.0 Concent Red Cell Distribution Width 19.4 Platelet Count 447 Mean Platelet Volume 6.6 Sodium Level 134 Potassium Level 3.6 Chloride Level 101 Carbon Dioxide Level 28.3 Anion Gap 5 Blood Urea Nitrogen 8 Creatinine 0.80 Estimat Glomerular Filtration 93 Rate Random Glucose 119 Calcium Level 8.4 Vancomycin Level Trough 4.2 Blood Type A POSITIVE Antibody Screen NEGATIVE Crossmatch Leukocyte-Reduced Red Blood Cells Blood Bank Comment Date/Time Procedure Status Source Growth 08/03/16 13:00 Gram Stain - Final Resulted Wound Toe 08/03/16 13:00 Wound Culture - Preliminary Resulted S. Aureus Mrsa Gram Negative Marcial 08/03/16 13:00 Fungal Smear - Final Resulted Wound Toe NO FUNGAL ELEMENTS SEEN. 08/03/16 13:00 Fungal Culture Resulted Wound Toe Pending 08/03/16 13:00 Acid Fast Stain - Final Resulted Wound Toe NO ACID FAST BACILLI SEEN 08/03/16 13:00 Mycobacterial Culture Resulted Wound Toe Pending 08/02/16 12:20 Aerobic Blood Culture - Preliminary Resulted Blood Peripheral NO GROWTH IN 3 DAYS 08/02/16 12:20 Anaerobic Blood Culture - Preliminary Resulted Blood Peripheral NO GROWTH IN 3 DAYS Result Diagram: 08/05/16 1622 08/05/16 0835 Imaging Last Impressions Lower Extremity CT 08/02/16 0000 Signed Impressions: Service Date/Time: Tuesday, August 02, 2016 15:18 - CONCLUSION: 1. Degraded study by motion artifact. 2. 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 3. Diffuse edema with subcutaneous air involving the plantar soft tissues. This can be seen in infections with gas producing organisms as well as air introduced via trauma. Jose Luis Welch Jr., MD Foot X-Ray 08/02/16 0000 Signed Impressions: Service Date/Time: Tuesday, August 02, 2016 12:37 - CONCLUSION: 1. Prior amputations. 2. No acute abnormality. Jose Luis Welch Jr., MD Assessment and Plan Assessment and Plan Assessment: This is a 80-year-old gentleman with a long smoking history, and a history of multiple surgeries ( toe amputation) secondary to poor circulation. He is now status post left ankle disarticulation, with intraoperative EBL of approximately 700 cc. H/O tobaccoism PAD CHF Dementia Atrial fibrillation Hypertension Hyperlipidemia Diabetes mellitus type 2 PLAN: Follow-up CBC, postoperatively Obtain CBC in a.m. Monitor wound VAC output Hold antihypertensive meds at this time-patient normotensive A. fib currently rate controlled, will resume home medications in a.m. Heart healthy diet in a.m. Level 3 Code Status FULL Discussed Condition With Marta Nunes MD August 06, 2016 07:14
--- NOTE | 2016-08-06 07:29 | HHI.CCPN ---
Subjective Remarks/Hospital Course Mr. Marcos is a 80 year old male. He is here today due to worsening of his left foot wound, now with signs of infection and gangrene. He has chronic and poor lower extremity blood flow from PAD related to a history of smoking and DM2. As an outpatient he was planned for a third toe amputation and revascularization in 3 days and has been on levaquin and bactrim, but due to the worsening he came into the hospital and may have earlier intervention. History is obtained from his as he has dementia and is not fully oriented enough to provide a good history. On 08/05 the patient underwent left ankle disarticulation, would EBL approximately of 700 cc, requiring transfusion of packed red blood cells. Critical care medicine is consulted. Subjective: 08/06: Overnight, no episodes of bleeding noted. Approximately 150 cc output in wound VAC. No active signs of bleeding. CBC pending. The patient's heart rate became elevated to 120 and required metoprolol 5 mg IV 1, with resolution. Objective Vital Signs Date Time Temp Pulse Resp B/P Pulse Ox O2 Delivery O2 Flow Rate FiO2 08/06/16 06:00 106 08/06/16 04:15 98.1 20 156/98 95 08/05/16 19:30 Nasal Cannula 2 Intake and Output 08/05/16 08/05/16 08/06/16 08:00 16:00 00:00 Intake Total 3320 ml Output Total 2700 ml Balance 620 ml Result Diagram: 08/05/16 1622 08/05/16 0835 Imaging Last Impressions Lower Extremity CT 08/02/16 0000 Signed Impressions: Service Date/Time: Tuesday, August 02, 2016 15:18 - CONCLUSION: 1. Degraded study by motion artifact. 2. 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 3. Diffuse edema with subcutaneous air involving the plantar soft tissues. This can be seen in infections with gas producing organisms as well as air introduced via trauma. Jose Luis Welch Jr., MD Foot X-Ray 08/02/16 0000 Signed Impressions: Service Date/Time: Tuesday, August 02, 2016 12:37 - CONCLUSION: 1. Prior amputations. 2. No acute abnormality. Jose Luis Welch Jr., MD Objective Remarks GENERAL: Elderly gentleman, semi-recumbent in bed appropriately responsive on nasal cannula, in no apparent distress. SKIN: Warm and dry. Left lower extremity dressing intact with wound VAC, left femoral groin dressing intact HEAD: Atraumatic. Normocephalic. EYES: Pupils equal and round. No scleral icterus. No injection or drainage. ENT: No nasal bleeding or discharge. Mucous membranes pink and moist. NECK: Trachea midline. No JVD. CARDIOVASCULAR: Normal rate, regular rhythm. RESPIRATORY: No accessory muscle use. Clear to auscultation. Breath sounds equal bilaterally. Nasal cannula 2 L/m GASTROINTESTINAL: Abdomen soft, non-tender, nondistended. No guarding. MUSCULOSKELETAL: Extremities without clubbing, cyanosis, or edema. S/P left ankle disarticulation dressing intact. NEUROLOGICAL: Awake and alert. RASS 0. No gross focal/sensory deficits. Follows commands in all 4 extremities. A/P Assessment and Plan Assessment: This is a 80-year-old gentleman with a long smoking history, and a history of multiple surgeries ( toe amputation) secondary to poor circulation. He is now status post left ankle disarticulation, with intraoperative EBL of approximately 700 cc. H/O tobaccoism PAD CHF Dementia Atrial fibrillation Hypertension Hyperlipidemia Diabetes mellitus type 2 PLAN: CBC- postop 8.5 F/U CBC this a.m. Continue to monitor wound VAC output 150cc Resume home medications A. fib currently rate controlled, patient takes carvedilol will resume home medications in a.m. Begin Heart Healthy diet Critical care medicine will sign off, thank you for the consult. Level 2 Physician Marta Crisostomo MD August 06, 2016 07:29
[2016-08-06 07:43] LABS: BASOPHIL # 0.1 TH/MM3 (0-0.2); BASOPHIL % 0.6 % (0.0-2.0); EOSINOPHIL # 0.2 TH/MM3 (0-0.4); EOSINOPHIL % 1.7 % (0.0-4.0); LYMPH % 10.6 % (9.0-44.0); LYMPHOCYTE # 1.3 TH/MM3 (1.0-4.8); MEAN CELL VOLUME 74.5 FL (80.0-100.0); MEAN CORPUSCULAR HEMOGLOBIN 24.4 PG (27.0-34.0); MEAN CORPUSCULAR HGB CONC 32.8 % (32.0-36.0); MONO % 11.2 % (0.0-8.0); NEUT % 75.9 % (16.0-70.0); PLATELET COUNT 346 TH/MM3 (150-450); RED BLOOD COUNT 3.63 MIL/MM3 (4.50-5.90); RED CELL DISTRIBUTION WIDTH 19.1 % (11.6-17.2); WHITE BLOOD COUNT 11.8 TH/MM3 (4.0-11.0)
[2016-08-06 07:53] LABS: HEMO FLAGS AUTO DIFF
[2016-08-06] MEDS: RESP: ALBUTEROL 2.5 MG/IPRATROPIUM 0.5 MG NEB (SCH) NEB ×3 (08:04→20:46)
[2016-08-06 08:12] LABS: BICARBONATE 26.5 MEQ/L (21.0-32.0); MAGNESIUM 1.8 MG/DL (1.5-2.5); POTASSIUM 3.9 MEQ/L (3.5-5.1)
[2016-08-06] MEDS: MULTIVITAMINS/MINERALS THERAPEUTIC TAB PO SCH (08:44)
[2016-08-06] MEDS: CARVEDILOL 12.5 MG TAB PO SCH ×2 (08:44→21:58)
[2016-08-06] MEDS: DOCUSATE SODIUM 100 MG CAP PO SCH ×2 (08:44→21:00)
[2016-08-06] MEDS: POLYETHYLENE GLYCOL 17 GM PKG PO SCH (08:45)
[2016-08-06] MEDS: SODIUM CHLORIDE 0.9% FLUSH 10 ML FLUSH IV FLUSH SCH ×2 (08:45→21:58)
[2016-08-06] MEDS: MAGNESIUM HYDROXIDE SUSP 30 ML CUP PO SCH (08:45)
[2016-08-06] MEDS: DILTIAZEM-CD 180 MG CAP ER PO SCH (08:48)
[2016-08-06] MEDS: FUROSEMIDE 20 MG TAB PO SCH (08:49)
[2016-08-06] MEDS ORDERED: POTASSIUM PHOSPHATE MONOBASIC 500 MG TAB PO ONE (09:00)
[2016-08-06 09:39] LABS: ACANTHOCYTES OCC (NORMAL); OVALOCYTES 1+ (NORMAL); SCAN/DIFF AUTO DIFF CONFIRMED
--- NOTE | 2016-08-06 10:48 | PD.VS.PN ---
Subjective Subjective/Hospital Course Status post left ankle disarticulation POD#2 Subsequent revascularization of left common femoral artery. Patient wants to have BM. Objective Vitals/I&O Date Time Temp Pulse Resp B/P Pulse Ox O2 Delivery O2 Flow Rate FiO2 08/06/16 08:43 113 08/06/16 08:38 98.5 113 18 141/90 98 08/06/16 08:32 100 08/06/16 07:30 100 08/06/16 07:00 113 08/06/16 06:00 106 08/06/16 06:00 106 08/06/16 05:00 102 08/06/16 05:00 102 08/06/16 04:15 98.1 92 20 156/98 95 08/06/16 04:00 92 08/06/16 04:00 92 08/06/16 03:00 106 08/06/16 03:00 106 08/06/16 02:00 125 08/06/16 02:00 123 08/06/16 01:00 147 08/06/16 01:00 122 08/06/16 00:05 98.2 116 18 131/71 95 08/06/16 00:00 122 08/06/16 00:00 108 08/05/16 23:00 102 08/05/16 23:00 106 08/05/16 22:00 110 08/05/16 22:00 112 08/05/16 21:00 122 08/05/16 21:00 102 08/05/16 20:00 108 08/05/16 20:00 98.1 128 20 151/91 99 08/05/16 19:30 97 16 159/72 99 Nasal Cannula 2 08/05/16 19:15 98.1 108 20 151/91 99 08/05/16 19:00 118 08/05/16 18:15 93 16 153/78 99 Nasal Cannula 2 08/05/16 17:15 88 16 138/72 99 Nasal Cannula 2 08/05/16 17:00 91 16 131/65 99 Nasal Cannula 2 08/05/16 16:45 81 16 134/61 99 Nasal Cannula 2 08/05/16 16:30 87 16 115/77 99 Nasal Cannula 2 08/05/16 16:30 98.2 87 16 115/77 99 08/05/16 16:20 98.2 80 16 123/65 100 Nasal Cannula 2 08/06/16 08/06/16 08/06/16 07:00 15:00 23:00 Intake Total 1339 ml Output Total 850 ml Balance 489 ml Physical Exam Exp rhonchii left pop strong signal. Both wound vacs intact. Laboratory Laboratory Tests Test 08/05/16 08/05/16 08/05/16 08/06/16 13:05 14:55 16:22 07:27 Blood Type A POSITIVE Antibody Screen NEGATIVE Crossmatch Leukocyte-Reduced Red Blood Cells Blood Bank Comment Hemoglobin 8.5 8.9 Hematocrit 24.7 27.0 White Blood Count 11.8 Red Blood Count 3.63 Mean Corpuscular Volume 74.5 Mean Corpuscular Hemoglobin 24.4 Mean Corpuscular Hemoglobin 32.8 Concent Red Cell Distribution Width 19.1 Platelet Count 346 Mean Platelet Volume 6.4 Neutrophils (%) (Auto) 75.9 Lymphocytes (%) (Auto) 10.6 Monocytes (%) (Auto) 11.2 Eosinophils (%) (Auto) 1.7 Basophils (%) (Auto) 0.6 Neutrophils # (Auto) 9.0 Lymphocytes # (Auto) 1.3 Monocytes # (Auto) 1.3 Eosinophils # (Auto) 0.2 Basophils # (Auto) 0.1 CBC Comment AUTO DIFF Differential Comment AUTO DIFF CONFIRMED Ovalocytes 1+ Acanthocytes OCC Sodium Level 136 Potassium Level 3.9 Chloride Level 101 Carbon Dioxide Level 26.5 Anion Gap 9 Blood Urea Nitrogen 8 Creatinine 0.80 Estimat Glomerular Filtration 93 Rate Random Glucose 164 Calcium Level 8.3 Phosphorus Level 2.0 Magnesium Level 1.8 Date/Time Procedure Status Source Growth 08/03/16 13:00 Gram Stain - Final Resulted Wound Toe 08/03/16 13:00 Wound Culture - Preliminary Resulted S. Aureus Mrsa Pseudomonas Aeruginosa 08/03/16 13:00 Fungal Smear - Final Resulted Wound Toe NO FUNGAL ELEMENTS SEEN. 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 Underwent left ankle disarticulation and left femoral endarterectomy. Completion BKA left lower extremity next week. May resume diet and would keep in bed for (BM)risk of fall. Needs pulmonary toilet. David Bhardwaj DO, FACS [employer] /David Barry DO August 06, 2016 10:48
[2016-08-06] MEDS: VANCOMYCIN INJ 1,000 MG in SODIUM CHLOR 0.9% 250 ML INJ 250 ML IV SCH (13:39)
[2016-08-06] MEDS: ACETAMINOPHEN/HYDROcodone 325 MG/5 MG TAB PO PRN ×2 (13:45→18:37)
--- NOTE | 2016-08-06 14:45 | HHI.PR ---
Subjective Remarks Left foot amputation completed yesterday. No complaints of pain from the patient. He has disorientation, but is alert. Objective Vital Signs Date Time Temp Pulse Resp B/P Pulse Ox O2 Delivery O2 Flow Rate FiO2 08/06/16 12:40 97.8 64 18 135/67 100 08/06/16 09:00 77 08/06/16 08:43 113 08/06/16 08:38 98.5 113 18 141/90 98 08/06/16 08:32 100 08/06/16 08:20 97 Nasal Cannula 2.00 08/06/16 07:30 100 08/06/16 07:00 113 08/06/16 06:00 106 08/06/16 06:00 106 08/06/16 05:00 102 08/06/16 05:00 102 08/06/16 04:15 98.1 92 20 156/98 95 08/06/16 04:00 92 08/06/16 04:00 92 08/06/16 03:00 106 08/06/16 03:00 106 08/06/16 02:00 125 08/06/16 02:00 123 08/06/16 01:00 147 08/06/16 01:00 122 08/06/16 00:05 98.2 116 18 131/71 95 08/06/16 00:00 122 08/06/16 00:00 108 08/05/16 23:00 102 08/05/16 23:00 106 08/05/16 22:00 110 08/05/16 22:00 112 08/05/16 21:00 122 08/05/16 21:00 102 08/05/16 20:00 108 08/05/16 20:00 98.1 128 20 151/91 99 08/05/16 19:30 97 16 159/72 99 Nasal Cannula 2 08/05/16 19:15 98.1 108 20 151/91 99 08/05/16 19:00 118 08/05/16 18:15 93 16 153/78 99 Nasal Cannula 2 08/05/16 17:15 88 16 138/72 99 Nasal Cannula 2 08/05/16 17:00 91 16 131/65 99 Nasal Cannula 2 08/05/16 16:45 81 16 134/61 99 Nasal Cannula 2 08/05/16 16:30 87 16 115/77 99 Nasal Cannula 2 08/05/16 16:30 98.2 87 16 115/77 99 08/05/16 16:20 98.2 80 16 123/65 100 Nasal Cannula 2 I/O 08/05/16 08/05/16 08/05/16 08/06/16 08/06/16 08/06/16 07:00 15:00 23:00 07:00 15:00 23:00 Intake Total 3320 ml 1339 ml Output Total 2700 ml 850 ml Balance 620 ml 489 ml Intake Oral 520 ml 120 ml IV Total 800 ml 1219 ml Other 2000 ml Output Urine Total 2100 ml 700 ml Drainage Total 150 ml Estimated Blood Loss 600 ml # Voids 2 # Bowel Movements 0 Result Diagram: 08/06/1672608/06/16726 Objective Remarks GENERAL: NAD, A&Ox0 SKIN: Warm and dry. HEAD: Normocephalic. EYES: No scleral icterus. No injection or drainage. NECK: Supple, trachea midline. No JVD or lymphadenopathy. CARDIOVASCULAR: Regular rate and rhythm without murmurs, gallops, or rubs. RESPIRATORY: Breath sounds equal bilaterally. No accessory muscle use. GASTROINTESTINAL: Abdomen soft, non-tender, nondistended. MUSCULOSKELETAL: No cyanosis, or edema. Left foot removed since last assessment , stump is bandaged. BACK: Nontender without obvious deformity. No CVA tenderness. A/P Problem List: (1) PAD (peripheral artery disease) ICD Code: I73.9 (2) Cellulitis in diabetic foot ICD Code: E13.628 (3) DM (diabetes mellitus) ICD Code: E11.9 (4) Hypertension ICD Code: I10 (5) Diabetes ICD Code: E11.9 (6) Dementia ICD Code: F03.90 (7) Atrial fibrillation ICD Code: I48.91 (8) Diabetic foot infection ICD Code: E11.69 (9) TIA (transient ischemic attack) ICD Code: G45.9 Assessment and Plan Assessment and Plan 80 year old male. Now at baseline cognition. PT to continue after stable post op Wound vac in place Left foot amputation yesterday No significant blood loss PRN pain treatments ordered Left foot Gangrene Left 3rd toe Gangrene Diabetic Foot Infection Cellulitis of left foot PAD Leukocytosis No SIRS or Sepsis overnight Tolerating treatment Vascular Surgeon following Complication of DM2 and Poor Circulation Vancomycin and Zosyn have been ordered Toe amputation and I&D/Debridement performed 08/03/16 Revascularization measures planned Follow vital signs Follow CBC HTN Continue baseline treatments Monitor BP Dementia Supportive Care DM2 SSI Diabetic Diet Follow blood sugars A-fib Telemetry Holding blood thinners till post op DVT Prophylaxis Surgery pending Initiate Lovenox post op Jose Manuel Oviedo MD August 06, 2016 14:45
[2016-08-06] MEDS: ENOXAPARIN SODIUM 40 MG/0.4 ML SYRINGE SQ SCH (17:18)
[2016-08-06] MEDS: ATORVASTATIN 40 MG TAB PO SCH (21:00)
[2016-08-06] MEDS: SENNOSIDES 8.6 MG TAB PO SCH (21:57)
[2016-08-06] MEDS: POTASSIUM PHOSPHATE MONOBASIC 500 MG TAB PO SCH (21:57)
[2016-08-06] MEDS: RESP: ALBUTEROL 2.5 MG/3 ML NEB (SCH) NEB (23:36)
[2016-08-07] VITALS (29 sets, daily range): BP systolic 111–158; BP diastolic 60–84; PULSE 60–124; RESP 16–20; TEMP 97.8–98.4; O2SAT 97–98
[2016-08-07] MEDS: INSULIN ASPART SUPPLEMENTAL SCALE SQ SCH ×4 (05:30→21:48)
[2016-08-07 05:47] LABS: MEAN CORPUSCULAR HEMOGLOBIN 24.3 PG (27.0-34.0); MEAN CORPUSCULAR HGB CONC 32.8 % (32.0-36.0); PLATELET COUNT 306 TH/MM3 (150-450); RED BLOOD COUNT 3.25 MIL/MM3 (4.50-5.90); RED CELL DISTRIBUTION WIDTH 19.3 % (11.6-17.2); WHITE BLOOD COUNT 11.8 TH/MM3 (4.0-11.0)
[2016-08-07 06:05] LABS: BICARBONATE 26.5 MEQ/L (21.0-32.0); MAGNESIUM 1.9 MG/DL (1.5-2.5); POTASSIUM 3.8 MEQ/L (3.5-5.1)
[2016-08-07 06:11] LABS: REVIEW FLAG FINAL
[2016-08-07] MEDS: RESP: ALBUTEROL 2.5 MG/IPRATROPIUM 0.5 MG NEB (SCH) NEB ×2 (07:33→13:22)
[2016-08-07] MEDS: RESP: ALBUTEROL 2.5 MG/3 ML NEB (SCH) NEB ×3 (08:00→19:15)
[2016-08-07] MEDS: PIPERACIL-TAZO 3.375 GM PREMIX 50 ML IV SCH ×2 (08:09→15:39)
[2016-08-07] MEDS: SODIUM CHLORIDE 0.9% FLUSH 10 ML FLUSH IV FLUSH SCH ×2 (08:09→21:44)
[2016-08-07] MEDS: DOCUSATE SODIUM 100 MG CAP PO SCH ×2 (08:12→21:43)
[2016-08-07] MEDS: MAGNESIUM HYDROXIDE SUSP 30 ML CUP PO SCH (08:12)
[2016-08-07] MEDS: POTASSIUM PHOSPHATE MONOBASIC 500 MG TAB PO SCH ×2 (08:12→21:44)
[2016-08-07] MEDS: ACETAMINOPHEN/HYDROcodone 325 MG/5 MG TAB PO PRN ×2 (08:13→15:00)
[2016-08-07] MEDS: MULTIVITAMINS/MINERALS THERAPEUTIC TAB PO SCH (08:13)
[2016-08-07] MEDS: FUROSEMIDE 20 MG TAB PO SCH (08:13)
[2016-08-07] MEDS: POLYETHYLENE GLYCOL 17 GM PKG PO SCH (08:13)
[2016-08-07] MEDS: DILTIAZEM-CD 180 MG CAP ER PO SCH (08:13)
[2016-08-07] MEDS: CARVEDILOL 12.5 MG TAB PO SCH ×2 (08:14→21:43)
--- NOTE | 2016-08-07 10:45 | HHI.PR ---
Subjective Remarks BKA planned for sometime this coming week. Patient is at his dementia baseline , confused. Pain is under control. Objective Vital Signs Date Time Temp Pulse Resp B/P Pulse Ox O2 Delivery O2 Flow Rate FiO2 08/07/16 10:00 84 08/07/16 09:00 94 08/07/16 08:00 85 08/07/16 07:33 97 08/07/16 07:00 98.2 124 18 158/84 97 08/07/16 07:00 96 08/07/16 06:00 90 08/07/16 05:00 84 08/07/16 04:00 84 08/07/16 03:13 87 18 144/71 98 08/07/16 03:00 83 08/07/16 02:00 86 08/07/16 01:00 86 08/07/16 00:00 84 08/06/16 23:50 91 18 133/76 100 08/06/16 23:00 93 08/06/16 22:00 86 08/06/16 21:00 84 08/06/16 20:50 98 Nasal Cannula 2.00 08/06/16 20:00 96 08/06/16 19:30 97.8 71 18 146/76 100 08/06/16 19:00 93 08/06/16 18:43 81 08/06/16 17:00 75 08/06/16 16:00 81 08/06/16 15:27 98.3 70 18 120/71 100 08/06/16 15:00 72 08/06/16 14:00 72 08/06/16 13:00 74 08/06/16 12:40 97.8 64 18 135/67 100 08/06/16 12:00 80 08/06/16 11:00 84 I/O 08/06/16 08/06/16 08/06/16 08/07/16 08/07/16 08/07/16 07:00 15:00 23:00 07:00 15:00 23:00 Intake Total 1339 ml 1560 ml 1200 ml Output Total 850 ml 900 ml 1650 ml Balance 489 ml 660 ml -450 ml Intake Oral 120 ml 460 ml 360 ml IV Total 1219 ml 1100 ml 840 ml Output Urine Total 700 ml 900 ml 1650 ml Drainage Total 150 ml # Bowel Movements 1 0 Result Diagram: 08/07/16 0432 08/07/16 0432 Objective Remarks GENERAL: NAD, A&Ox0 SKIN: Warm and dry. HEAD: Normocephalic. EYES: No scleral icterus. No injection or drainage. NECK: Supple, trachea midline. No JVD or lymphadenopathy. CARDIOVASCULAR: Regular rate and rhythm without murmurs, gallops, or rubs. RESPIRATORY: Breath sounds equal bilaterally. No accessory muscle use. GASTROINTESTINAL: Abdomen soft, non-tender, nondistended. MUSCULOSKELETAL: No cyanosis, or edema. Left foot removed since last assessment , stump is bandaged. BACK: Nontender without obvious deformity. No CVA tenderness. A/P Problem List: (1) PAD (peripheral artery disease) ICD Code: I73.9 (2) Cellulitis in diabetic foot ICD Code: E13.628 (3) DM (diabetes mellitus) ICD Code: E11.9 (4) Hypertension ICD Code: I10 (5) Diabetes ICD Code: E11.9 (6) Dementia ICD Code: F03.90 (7) Atrial fibrillation ICD Code: I48.91 (8) Diabetic foot infection ICD Code: E11.69 (9) TIA (transient ischemic attack) ICD Code: G45.9 Assessment and Plan Assessment and Plan 80 year old male. At baseline cognition. Bedrest for now Wound vac in place Left foot amputation completed during this stay BKA planned for later this week PRN pain treatments ordered Left foot Gangrene Left 3rd toe Gangrene Diabetic Foot Infection Cellulitis of left foot PAD Leukocytosis No SIRS or Sepsis overnight Tolerating treatment Vascular Surgeon following Complication of DM2 and Poor Circulation Vancomycin and Zosyn have been ordered Toe amputation and I&D/Debridement performed 08/03/16 Revascularization measures planned Follow vital signs Follow CBC HTN Continue baseline treatments Monitor BP Dementia Supportive Care DM2 SSI Diabetic Diet Follow blood sugars A-fib Telemetry Holding blood thinners till post op DVT Prophylaxis Surgery pending Initiate Lovenox post op Jose Manuel Oviedo MD August 07, 2016 10:45
[2016-08-07] MEDS: VANCOMYCIN INJ 1,000 MG in SODIUM CHLOR 0.9% 250 ML INJ 250 ML IV SCH (13:13)
[2016-08-07] MEDS: DEXT 5%-NACL 0.45% 1000 ML INJ 1,000 ML IV SCH (13:42)
--- NOTE | 2016-08-07 14:22 | PD.VS.PN ---
Subjective Subjective/Hospital Course Status post left ankle disarticulation POD#2 Subsequent revascularization of left common femoral artery. Patient a little more confused today. Sitter at bedside. Objective Vitals/I&O Date Time Temp Pulse Resp B/P Pulse Ox O2 Delivery O2 Flow Rate FiO2 08/07/16 13:00 72 08/07/16 12:00 60 08/07/16 11:00 98.0 80 17 145/77 97 08/07/16 11:00 64 08/07/16 10:00 84 08/07/16 09:00 94 08/07/16 08:00 85 08/07/16 07:33 97 08/07/16 07:00 98.2 124 18 158/84 97 08/07/16 07:00 96 08/07/16 06:00 90 08/07/16 05:00 84 08/07/16 04:00 84 08/07/16 03:13 87 18 144/71 98 08/07/16 03:00 83 08/07/16 02:00 86 08/07/16 01:00 86 08/07/16 00:00 84 08/06/16 23:50 91 18 133/76 100 08/06/16 23:00 93 08/06/16 22:00 86 08/06/16 21:00 84 08/06/16 20:50 98 Nasal Cannula 2.00 08/06/16 20:00 96 08/06/16 19:30 97.8 71 18 146/76 100 08/06/16 19:00 93 08/06/16 18:43 81 08/06/16 17:00 75 08/06/16 16:00 81 08/06/16 15:27 98.3 70 18 120/71 100 08/06/16 15:00 72 08/07/16 08/07/16 08/07/16 07:00 15:00 23:00 Intake Total 1200 ml Output Total 1650 ml Balance -450 ml Physical Exam Left Amputation stump is clean. 200 cc in vac. Left groin vac is intact. Laboratory Laboratory Tests Test 08/06/16 08/07/16 14:42 04:32 Phosphorus Level 1.8 2.1 White Blood Count 11.8 Red Blood Count 3.25 Hemoglobin 7.9 Hematocrit 24.0 Mean Corpuscular Volume 74.0 Mean Corpuscular Hemoglobin 24.3 Mean Corpuscular Hemoglobin 32.8 Concent Red Cell Distribution Width 19.3 Platelet Count 306 Mean Platelet Volume 6.9 Sodium Level 133 Potassium Level 3.8 Chloride Level 99 Carbon Dioxide Level 26.5 Anion Gap 8 Blood Urea Nitrogen 10 Creatinine 0.76 Estimat Glomerular Filtration 99 Rate Random Glucose 134 Calcium Level 8.3 Magnesium Level 1.9 Date/Time Procedure Status Source Growth 08/03/16 13:00 Gram Stain - Final Complete Wound Toe 08/03/16 13:00 Wound Culture - Final Complete S. Aureus Mrsa Pseudomonas Aeruginosa 08/03/16 13:00 Fungal Smear - Final Resulted Wound Toe NO FUNGAL ELEMENTS SEEN. 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 Underwent left ankle disarticulation and left femoral endarterectomy. Completion BKA vs AKA this week. Spoke with family and based on patients poor prognosis for a prosthesis (mental status-ability to progress in physical therapy) and the start of a contracture (poor chance of healing) AKA may be a better option. Will keep hennessy in as patient is confused at this point. Needs pulmonary toilet. David Bhardwaj DO, FACS Technical Agronomist of Vascular Surgery /David Barry DO August 07, 2016 14:22
[2016-08-07] MEDS: ENOXAPARIN SODIUM 40 MG/0.4 ML SYRINGE SQ SCH (15:39)
[2016-08-07] MEDS: SENNOSIDES 8.6 MG TAB PO SCH (21:43)
[2016-08-07] MEDS: ATORVASTATIN 40 MG TAB PO SCH (21:44)
[2016-08-08] VITALS (27 sets, daily range): BP systolic 129–156; BP diastolic 47–92; PULSE 62–108; RESP 16–18; TEMP 97.6–98.2; O2SAT 95–99
[2016-08-08] MEDS: DEXT 5%-NACL 0.45% 1000 ML INJ 1,000 ML IV SCH ×2 (00:01→14:15)
[2016-08-08] MEDS: PIPERACIL-TAZO 3.375 GM PREMIX 50 ML IV SCH ×3 (00:05→17:41)
[2016-08-08] MEDS: ACETAMINOPHEN/HYDROcodone 325 MG/5 MG TAB PO PRN ×4 (03:03→18:48)
[2016-08-08] MEDS: INSULIN ASPART SUPPLEMENTAL SCALE SQ SCH ×4 (05:29→21:00)
[2016-08-08 06:20] LABS: MEAN CELL VOLUME 75.1 FL (80.0-100.0); MEAN CORPUSCULAR HEMOGLOBIN 24.6 PG (27.0-34.0); MEAN CORPUSCULAR HGB CONC 32.8 % (32.0-36.0); PLATELET COUNT 344 TH/MM3 (150-450); RED CELL DISTRIBUTION WIDTH 19.4 % (11.6-17.2); WHITE BLOOD COUNT 12.9 TH/MM3 (4.0-11.0)
[2016-08-08 06:35] LABS: REVIEW FLAG FINAL
[2016-08-08 06:49] LABS: BICARBONATE 26.2 MEQ/L (21.0-32.0); POTASSIUM 3.7 MEQ/L (3.5-5.1)
[2016-08-08] MEDS: MULTIVITAMINS/MINERALS THERAPEUTIC TAB PO SCH (08:41)
[2016-08-08] MEDS: DOCUSATE SODIUM 100 MG CAP PO SCH ×2 (08:41→20:27)
[2016-08-08] MEDS: POTASSIUM PHOSPHATE MONOBASIC 500 MG TAB PO SCH ×2 (08:41→20:27)
[2016-08-08] MEDS: MAGNESIUM HYDROXIDE SUSP 30 ML CUP PO SCH (08:41)
[2016-08-08] MEDS: POLYETHYLENE GLYCOL 17 GM PKG PO SCH (08:41)
[2016-08-08] MEDS: FUROSEMIDE 20 MG TAB PO SCH (08:41)
[2016-08-08] MEDS: DILTIAZEM-CD 180 MG CAP ER PO SCH (08:41)
[2016-08-08] MEDS: CARVEDILOL 12.5 MG TAB PO SCH ×2 (08:41→20:27)
[2016-08-08] MEDS: SODIUM CHLORIDE 0.9% FLUSH 10 ML FLUSH IV FLUSH SCH ×2 (08:42→20:27)
--- NOTE | 2016-08-08 09:28 | HHI.PR ---
Subjective Remarks Dementia is at baseline. No complaints from patient. BKA planned for sometime this coming week. Pain controlled. Objective Vital Signs Date Time Temp Pulse Resp B/P Pulse Ox O2 Delivery O2 Flow Rate FiO2 08/08/16 07:00 108 08/08/16 06:00 92 08/08/16 05:00 92 08/08/16 04:00 96 08/08/16 03:11 89 18 156/92 95 08/08/16 03:00 98 08/08/16 02:00 84 08/08/16 01:00 86 08/08/16 00:00 84 08/07/16 23:44 92 16 140/69 97 08/07/16 23:00 79 08/07/16 22:00 78 08/07/16 21:00 78 08/07/16 20:00 76 08/07/16 19:30 97.8 71 16 127/68 97 08/07/16 19:15 98 21 08/07/16 19:00 69 08/07/16 18:00 75 08/07/16 17:00 78 08/07/16 16:00 62 08/07/16 15:00 79 08/07/16 15:00 98.4 74 20 111/60 98 08/07/16 14:00 75 08/07/16 13:00 72 08/07/16 12:00 60 08/07/16 11:00 98.0 80 17 145/77 97 08/07/16 11:00 64 08/07/16 10:00 84 I/O 08/07/16 08/07/16 08/07/16 08/08/16 08/08/16 08/08/16 07:00 15:00 23:00 07:00 15:00 23:00 Intake Total 1200 ml 1150 ml 600 ml Output Total 1650 ml 950 ml 1400 ml Balance -450 ml 200 ml -800 ml Intake Oral 360 ml 840 ml 600 ml IV Total 840 ml 310 ml Output Urine Total 1650 ml 950 ml 1400 ml # Bowel Movements 0 1 0 Result Diagram: 08/08/1643908/08/160 Objective Remarks GENERAL: NAD, A&Ox0 SKIN: Warm and dry. HEAD: Normocephalic. EYES: No scleral icterus. No injection or drainage. NECK: Supple, trachea midline. No JVD or lymphadenopathy. CARDIOVASCULAR: Regular rate and rhythm without murmurs, gallops, or rubs. RESPIRATORY: Breath sounds equal bilaterally. No accessory muscle use. GASTROINTESTINAL: Abdomen soft, non-tender, nondistended. MUSCULOSKELETAL: No cyanosis, or edema. Left foot removed since last assessment , stump is bandaged. BACK: Nontender without obvious deformity. No CVA tenderness. A/P Problem List: (1) PAD (peripheral artery disease) ICD Code: I73.9 (2) Cellulitis in diabetic foot ICD Code: E13.628 (3) DM (diabetes mellitus) ICD Code: E11.9 (4) Hypertension ICD Code: I10 (5) Diabetes ICD Code: E11.9 (6) Dementia ICD Code: F03.90 (7) Atrial fibrillation ICD Code: I48.91 (8) Diabetic foot infection ICD Code: E11.69 (9) TIA (transient ischemic attack) ICD Code: G45.9 Assessment and Plan Assessment and Plan 80 year old male. No new complaints from the patient BKA may occur this week. At baseline cognition. Bedrest for now Wound vac in place Left foot amputation completed during this stay PRN pain treatments ordered Left foot Gangrene Left 3rd toe Gangrene Diabetic Foot Infection Cellulitis of left foot PAD Leukocytosis No SIRS or Sepsis overnight Tolerating treatment Vascular Surgeon following Complication of DM2 and Poor Circulation Vancomycin and Zosyn have been ordered Toe amputation and I&D/Debridement performed 08/03/16 Foot amputation 08/05/16 Follow vital signs Follow CBC HTN Continue baseline treatments Monitor BP Dementia Supportive Care DM2 SSI Diabetic Diet Follow blood sugars A-fib Telemetry Holding blood thinners till post op DVT Prophylaxis Surgery pending Jose Manuel Ott MD August 08, 2016 09:28
[2016-08-08] MEDS: VANCOMYCIN INJ 1,000 MG in SODIUM CHLOR 0.9% 250 ML INJ 250 ML IV SCH (14:01)
[2016-08-08] MEDS: RESP: ALBUTEROL 2.5 MG/3 ML NEB (SCH) NEB ×2 (14:05→15:50)
--- NOTE | 2016-08-08 15:54 | PD.VS.PN ---
Subjective Subjective/Hospital Course Status post left ankle disarticulation POD#2 Subsequent revascularization of left common femoral artery. Patient a little more confused today. Sitter at bedside. Objective Vitals/I&O Date Time Temp Pulse Resp B/P Pulse Ox O2 Delivery O2 Flow Rate FiO2 08/08/16 14:12 71 08/08/16 13:57 68 08/08/16 12:32 84 08/08/16 11:11 108 08/08/16 11:09 97.7 89 16 129/54 99 08/08/16 10:00 86 08/08/16 09:00 108 08/08/16 08:00 94 08/08/16 08:00 97.6 99 16 137/60 99 08/08/16 07:00 108 08/08/16 06:00 92 08/08/16 05:00 92 08/08/16 04:00 96 08/08/16 03:11 89 18 156/92 95 08/08/16 03:00 98 08/08/16 02:00 84 08/08/16 01:00 86 08/08/16 00:00 84 08/07/16 23:44 92 16 140/69 97 08/07/16 23:00 79 08/07/16 22:00 78 08/07/16 21:00 78 08/07/16 20:00 76 08/07/16 19:30 97.8 71 16 127/68 97 08/07/16 19:15 98 21 08/07/16 19:00 69 08/07/16 18:00 75 08/07/16 17:00 78 08/07/16 16:00 62 08/08/16 08/08/16 08/08/16 06:59 14:59 22:59 Intake Total 600 ml Output Total 1400 ml 1600 ml Balance -800 ml -1600 ml Physical Exam left wound vac in place. left pop signal is strong. Laboratory Laboratory Tests Test 08/08/16 04:40 White Blood Count 12.9 Red Blood Count 3.20 Hemoglobin 7.9 Hematocrit 24.0 Mean Corpuscular Volume 75.1 Mean Corpuscular Hemoglobin 24.6 Mean Corpuscular Hemoglobin 32.8 Concent Red Cell Distribution Width 19.4 Platelet Count 344 Mean Platelet Volume 6.9 Sodium Level 132 Potassium Level 3.7 Chloride Level 95 Carbon Dioxide Level 26.2 Anion Gap 11 Blood Urea Nitrogen 10 Creatinine 0.60 Estimat Glomerular Filtration 130 Rate Random Glucose 123 Calcium Level 8.4 Assessment and Plan Assessment: (1) Diabetic foot infection Status: Acute Plan This is a 80 year old male with a hx of a 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 Underwent left ankle disarticulation and left femoral endarterectomy. Completion BKA vs AKA monday after discussion with . She understands risk of conversion to AKA is possible in future. Blood supply seems adequate for attempt at BKA. Will see intraoperatively. Scheduled for right BKA vs AKA under nerve block. David Bhardwaj DO, FACS Offset Printing Pressmen of Vascular Surgery /David Barry DO August 08, 2016 15:53
[2016-08-08] MEDS: ENOXAPARIN SODIUM 40 MG/0.4 ML SYRINGE SQ SCH (16:00)
[2016-08-08] MEDS: ATORVASTATIN 40 MG TAB PO SCH (20:27)
[2016-08-08] MEDS: SENNOSIDES 8.6 MG TAB PO SCH (20:27)
[2016-08-09] VITALS (15 sets, daily range): BP systolic 124–144; BP diastolic 60–72; PULSE 70–88; RESP 14–20; TEMP 97.4–98; O2SAT 96–97
[2016-08-09] MEDS: RESP: ALBUTEROL 2.5 MG/3 ML NEB (SCH) NEB ×3 (00:43→16:15)
[2016-08-09] MEDS ORDERED: CHLORHEXIDINE GLUCONATE 2 % 1 PACK (2 CLOTHS) TOPICAL PRN (01:00)
[2016-08-09] MEDS ORDERED: LACTATED RINGER'S 1000 ML IV PRN (01:00)
[2016-08-09] MEDS ORDERED: SODIUM CHLORID 0.9% 500 ML IV PRN (01:00)
[2016-08-09] MEDS ORDERED: METOPROLOL TARTRATE 25 MG TAB PO PRN (01:00)
[2016-08-09] MEDS ORDERED: POVIDONE IODINE 5% (ANTISEPSIS KIT) 4 APPLICATIONS EACH NARE PRN (01:00)
[2016-08-09 05:28] LABS: HEMATOCRIT 24.2 % (39.0-51.0); MEAN CELL VOLUME 74.9 FL (80.0-100.0); MEAN CORPUSCULAR HGB CONC 33.3 % (32.0-36.0); PLATELET COUNT 352 TH/MM3 (150-450); RED BLOOD COUNT 3.22 MIL/MM3 (4.50-5.90); RED CELL DISTRIBUTION WIDTH 20.1 % (11.6-17.2); REVIEW FLAG FINAL; WHITE BLOOD COUNT 12.9 TH/MM3 (4.0-11.0)
[2016-08-09 05:51] LABS: BICARBONATE 28.7 MEQ/L (21.0-32.0); POTASSIUM 3.8 MEQ/L (3.5-5.1)
[2016-08-09] MEDS: INSULIN ASPART SUPPLEMENTAL SCALE SQ SCH ×4 (06:25→21:00)
[2016-08-09] MEDS: POTASSIUM PHOSPHATE MONOBASIC 500 MG TAB PO SCH ×2 (08:25→22:57)
[2016-08-09] MEDS: MAGNESIUM HYDROXIDE SUSP 30 ML CUP PO SCH (08:25)
[2016-08-09] MEDS: DOCUSATE SODIUM 100 MG CAP PO SCH ×2 (08:25→22:52)
[2016-08-09] MEDS: DILTIAZEM-CD 180 MG CAP ER PO SCH (08:25)
[2016-08-09] MEDS: CARVEDILOL 12.5 MG TAB PO SCH ×2 (08:25→22:57)
[2016-08-09] MEDS: PIPERACIL-TAZO 3.375 GM PREMIX 50 ML IV SCH ×3 (08:25→22:51)
[2016-08-09] MEDS: POLYETHYLENE GLYCOL 17 GM PKG PO SCH (08:25)
[2016-08-09] MEDS: FUROSEMIDE 20 MG TAB PO SCH (08:25)
[2016-08-09] MEDS: MULTIVITAMINS/MINERALS THERAPEUTIC TAB PO SCH (08:25)
[2016-08-09] MEDS: SODIUM CHLORIDE 0.9% FLUSH 10 ML FLUSH IV FLUSH SCH ×2 (08:26→21:00)
[2016-08-09] MEDS ORDERED: BUPIVACAINE/EPINEPHRINE 0.5% 50 ML VIAL ONE (10:02)
[2016-08-09] MEDS ORDERED: THROMBIN (TOPICAL) 5,000 UNIT VIAL ONE (10:02)
[2016-08-09] MEDS ORDERED: GENTAMICIN SULFATE 80 MG/2 ML VIAL ONE (10:03)
[2016-08-09] MEDS ORDERED: ceFAZolin INJ 1,000 MG VIAL ONE (10:03)
[2016-08-09] MEDS ORDERED: LIDOCAINE HCL 1% 50 ML VIAL ONE (10:03)
[2016-08-09] MEDS ORDERED: GELFOAM SIZE 100 ONE (10:03)
[2016-08-09] MEDS ORDERED: BUPIVACAINE/EPINEPHRINE 0.5% PF 30 ML VIAL ONE (10:04)
[2016-08-09] MEDS ORDERED: KETAMINE HCL 500 MG/5 ML VIAL ONE (11:51)
[2016-08-09] MEDS ORDERED: ePHEDrine/NS 25 MG/5 ML SYR IV ONE (12:00)
[2016-08-09] MEDS ORDERED: PHENYLEPH/NS 1000 MCG/10 ML SYR IV ONE (12:00)
[2016-08-09] MEDS ORDERED: PROPOFOL 200 MG/20 ML AMP IV ONE (12:00)
[2016-08-09] MEDS ORDERED: NORMOSOL R INJ 1,000 ML IV ONE (12:00)
[2016-08-09] MEDS ORDERED: NEOSTIGMINE 3 MG/3 ML SYR IV ONE (12:00)
[2016-08-09] MEDS ORDERED: BUPIVACAINE/EPINEPHRINE 0.5% PF 30 ML VIAL INFIL ONE (13:02)
[2016-08-09] MEDS ORDERED: GENTAMICIN SULFATE 80 MG/2 ML VIAL IRRIGATION ONE (13:02)
[2016-08-09] MEDS ORDERED: fentaNYL CITRATE 250 MCG/5 ML AMP ONE (13:05)
[2016-08-09] MEDS ORDERED: DO NOT ADM ANY ANTICOAGULANT DRUGS PRN (14:50)
[2016-08-09] MEDS: VANCOMYCIN INJ 1,000 MG in SODIUM CHLOR 0.9% 250 ML INJ 250 ML IV SCH (15:30)
--- NOTE | 2016-08-09 16:04 | HHI.PR ---
Immediate Post Op Note Procedure Date: August 09, 2016 Pre Op Diagnosis: (1) Diabetic foot infection Post Op Diagnosis: (1) Diabetic foot infection Surgeon: David Bhardwaj Binder Folder Operator(s): see op report. Procedure: Left BKA Findings: Clean left BKA stump Additional Information: NA Complications: none Specimen(s) removed: left leg. Estimated blood loss: 100cc Anesthesia: General, Regional Block Drains: None Fluids: See op report IVF Tourniquet time (min at mmHg) less than 30 minutes at 200 mmHg Patient to: PACU Patient Condition: Good Implant/Devices: Other Date/Time of Procedure: Other David Bhardwaj DO August 09, 2016 16:04
--- NOTE | 2016-08-09 16:23 | PD.VS.PN ---
Subjective Procedure(s): left common femoral artery endarterectomy Left Foot I&D with wound vac placement left BKA completion. Subjective/Hospital Course Status post left ankle disarticulation POD#2 Subsequent revascularization of left common femoral artery. status post left BKA Patient a little more confused today. Sitter at bedside. Objective Neuro: follows basic commands. Moves extremities and smiles. Vascular: left stump intact in knee immobilizer. Laboratory Laboratory Tests Test 08/08/16 08/09/16 18:13 04:29 Blood Type A POSITIVE Antibody Screen NEGATIVE White Blood Count 12.9 Red Blood Count 3.22 Hemoglobin 8.0 Hematocrit 24.2 Mean Corpuscular Volume 74.9 Mean Corpuscular Hemoglobin 25.0 Mean Corpuscular Hemoglobin 33.3 Concent Red Cell Distribution Width 20.1 Platelet Count 352 Mean Platelet Volume 7.0 Sodium Level 133 Potassium Level 3.8 Chloride Level 96 Carbon Dioxide Level 28.7 Anion Gap 8 Blood Urea Nitrogen 11 Creatinine 0.62 Estimat Glomerular Filtration 125 Rate Random Glucose 91 Calcium Level 8.3 Assessment and Plan Assessment: (1) Diabetic foot infection Status: Acute Plan This is a 80 year old male with a hx of a 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 Underwent left ankle disarticulation and left femoral endarterectomy. Completion BKA performed. Plan for dressing removal on with plan for rehab as well. David Bhardwaj DO, FACS Train Director of Vascular Surgery POLLY/David Barry DO August 09, 2016 16:23
--- NOTE | 2016-08-09 19:35 | HHI.PR ---
Subjective Remarks Late entry..Patient seen at 5:30PM after he returned from the OR Follow up DFI he is s/p Left BKA and denies any pain , shortness of breath Objective Vitals Vital Signs Date Time Temp Pulse Resp B/P Pulse Ox O2 Delivery O2 Flow Rate FiO2 08/09/16 18:22 76 08/09/16 17:02 78 08/09/16 16:27 80 08/09/16 15:54 98.6 75 21 130/60 98 Room Air 08/09/16 15:45 78 23 123/62 98 Room Air 08/09/16 15:30 80 23 126/60 97 Room Air 08/09/16 15:15 76 22 110/54 97 Room Air 08/09/16 15:06 85 08/09/16 15:06 97.4 73 18 125/65 97 08/09/16 15:00 80 24 101/53 94 Room Air 08/09/16 14:50 99.3 80 30 99/54 95 Room Air 08/09/16 08:25 80 08/09/16 07:48 97.4 87 20 144/71 97 08/09/16 07:48 88 08/09/16 06:02 82 08/09/16 05:13 82 08/09/16 04:00 98.0 87 20 141/72 97 08/09/16 04:00 87 08/09/16 03:00 80 08/09/16 02:06 80 08/09/16 01:00 88 08/09/16 00:00 70 08/09/16 00:00 98.0 70 20 127/68 97 08/08/16 23:00 64 08/08/16 22:00 72 08/08/16 21:00 64 08/08/16 20:30 98.0 73 18 130/58 96 08/08/16 20:00 98.2 62 18 130/58 97 08/08/16 20:00 64 I/O 08/08/16 08/08/16 08/08/16 08/09/16 08/09/16 08/09/16 07:00 15:00 23:00 07:00 15:00 23:00 Intake Total 600 ml 1250 ml 290 ml 1600 ml 340 ml Output Total 1400 ml 1600 ml 1040 ml 575 ml 800 ml 1700 ml Balance -800 ml -1600 ml 210 ml -285 ml 800 ml -1360 ml Intake Oral 600 ml 950 ml 240 ml 240 ml IV Total 300 ml 50 ml 100 ml Other 1600 ml Output Urine Total 1400 ml 1600 ml 1040 ml 575 ml 750 ml 1700 ml Estimated Blood Loss 50 ml # Bowel Movements 0 1 0 0 Result Diagram: 08/09/16 0429 08/09/16 0429 Imaging Last Impressions Lower Extremity CT 08/02/16 0000 Signed Impressions: Service Date/Time: Tuesday, August 02, 2016 15:18 - CONCLUSION: 1. Degraded study by motion artifact. 2. 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 3. Diffuse edema with subcutaneous air involving the plantar soft tissues. This can be seen in infections with gas producing organisms as well as air introduced via trauma. Jose Luis Welch Jr., MD Foot X-Ray 08/02/16 0000 Signed Impressions: Service Date/Time: Tuesday, August 02, 2016 12:37 - CONCLUSION: 1. Prior amputations. 2. No acute abnormality. Jose Luis Welch Jr., MD Objective Remarks GENERAL: NAD SKIN: Warm and dry. HEAD: Normocephalic. EYES: No scleral icterus. No injection or drainage. NECK: Supple, trachea midline. No JVD or lymphadenopathy. CARDIOVASCULAR: Regular rate and rhythm without murmurs, gallops, or rubs. RESPIRATORY: Breath sounds equal bilaterally. No accessory muscle use. GASTROINTESTINAL: Abdomen soft, non-tender, nondistended. MUSCULOSKELETAL: No cyanosis, or edema. s/p left BKA-dressing in place BACK: Nontender without obvious deformity. No CVA tenderness. Procedures s/p Left BKA 08/09/16 A/P Problem List: (1) Dementia ICD Code: F03.90 Status: Acute (2) Diabetic foot infection ICD Code: E11.69 Status: Acute (3) DM (diabetes mellitus) ICD Code: E11.9 Status: Chronic (4) Hypertension ICD Code: I10 Status: Chronic (5) Atrial fibrillation ICD Code: I48.91 Status: Chronic (6) PAD (peripheral artery disease) ICD Code: I73.9 Status: Acute (7) Diabetes ICD Code: E11.9 Status: Chronic (8) Cellulitis in diabetic foot ICD Code: E13.628 Status: Acute Assessment and Plan 80 yrs old man with Left foot Gangrene Left 3rd toe Gangrene Diabetic Foot Infection Cellulitis of left foot PAD Leukocytosis Complication of DM2 and Poor Circulation Vancomycin and Zosyn and monitor culture Toe amputation and I&D/Debridement performed 08/03/16 Foot amputation 08/05/16 s/p Left BKA 08/09/16 and appreciate input from vascular surgery HTN Continue baseline treatments Monitor BP Dementia Supportive Care DM2 SSI A-fib Telemetry Holding blood thinners till post op DVT Prophylaxis Holding Lovenox Jose C Ro MD August 09, 2016 19:35
[2016-08-09] MEDS: SENNOSIDES 8.6 MG TAB PO SCH (22:57)
[2016-08-09] MEDS: ATORVASTATIN 40 MG TAB PO SCH (22:57)
[2016-08-10] VITALS (25 sets, daily range): BP systolic 103–143; BP diastolic 41–77; PULSE 59–84; RESP 18–20; TEMP 97.4–98.6; O2SAT 93–98
[2016-08-10] MEDS: INSULIN ASPART SUPPLEMENTAL SCALE SQ SCH ×4 (05:19→20:55)
[2016-08-10] MEDS: PIPERACIL-TAZO 3.375 GM PREMIX 50 ML IV SCH ×3 (05:21→20:54)
[2016-08-10] MEDS: RESP: ALBUTEROL 2.5 MG/3 ML NEB (SCH) NEB ×2 (07:59→15:56)
[2016-08-10] MEDS: DOCUSATE SODIUM 100 MG CAP PO SCH ×2 (09:22→20:55)
[2016-08-10] MEDS: CARVEDILOL 12.5 MG TAB PO SCH ×2 (09:22→20:55)
[2016-08-10] MEDS: POTASSIUM PHOSPHATE MONOBASIC 500 MG TAB PO SCH ×2 (09:22→20:55)
[2016-08-10] MEDS: FUROSEMIDE 20 MG TAB PO SCH (09:22)
[2016-08-10] MEDS: DILTIAZEM-CD 180 MG CAP ER PO SCH (09:22)
[2016-08-10] MEDS: MULTIVITAMINS/MINERALS THERAPEUTIC TAB PO SCH (09:22)
[2016-08-10] MEDS: MAGNESIUM HYDROXIDE SUSP 30 ML CUP PO SCH (09:23)
[2016-08-10] MEDS: SODIUM CHLORIDE 0.9% FLUSH 10 ML FLUSH IV FLUSH SCH ×2 (09:23→20:54)
[2016-08-10] MEDS: POLYETHYLENE GLYCOL 17 GM PKG PO SCH (09:23)
--- NOTE | 2016-08-10 09:40 | HHI.PR ---
Subjective Remarks Follow-up foot osteomyelitis/gangrene/status post BKA 08/10/16-patient seen and examined, no acute event overnight. Currently afebrile and taking by mouth without any competition nausea and vomiting. Objective Vitals Vital Signs Date Time Temp Pulse Resp B/P Pulse Ox O2 Delivery O2 Flow Rate FiO2 08/10/16 06:00 66 08/10/16 05:00 60 08/10/16 04:00 62 08/10/16 03:33 98.0 66 20 135/69 96 08/10/16 03:11 59 08/10/16 03:00 68 08/10/16 02:00 72 08/10/16 01:00 70 08/10/16 00:00 98.2 74 18 103/41 98 08/09/16 22:57 74 08/09/16 20:45 21 08/09/16 20:00 97.8 76 14 124/60 96 08/09/16 20:00 71 08/09/16 18:22 76 08/09/16 17:02 78 08/09/16 16:27 80 08/09/16 15:54 98.6 75 21 130/60 98 Room Air 08/09/16 15:45 78 23 123/62 98 Room Air 08/09/16 15:30 80 23 126/60 97 Room Air 08/09/16 15:15 76 22 110/54 97 Room Air 08/09/16 15:06 85 08/09/16 15:06 97.4 73 18 125/65 97 08/09/16 15:00 80 24 101/53 94 Room Air 08/09/16 14:50 99.3 80 30 99/54 95 Room Air I/O 08/09/16 08/09/16 08/09/16 08/10/16 08/10/16 08/10/16 07:00 15:00 23:00 07:00 15:00 23:00 Intake Total 290 ml 1600 ml 340 ml 240 ml Output Total 575 ml 800 ml 1700 ml 1850 ml Balance -285 ml 800 ml -1360 ml -1610 ml Intake Oral 240 ml 240 ml 240 ml IV Total 50 ml 100 ml Other 1600 ml Output Urine Total 575 ml 750 ml 1700 ml 1850 ml Estimated Blood Loss 50 ml # Bowel Movements 0 0 Result Diagram: 08/09/16 0429 08/09/16 0429 Objective Remarks GENERAL: NAD SKIN: Warm and dry. HEAD: Normocephalic. EYES: No scleral icterus. No injection or drainage. NECK: Supple, trachea midline. No JVD or lymphadenopathy. CARDIOVASCULAR: Regular rate and rhythm without murmurs, gallops, or rubs. RESPIRATORY: Breath sounds equal bilaterally. No accessory muscle use. GASTROINTESTINAL: Abdomen soft, non-tender, nondistended. MUSCULOSKELETAL: No cyanosis, or edema. s/p left BKA-dressing in place BACK: Nontender without obvious deformity. No CVA tenderness. Procedures s/p Left BKA 08/09/16 A/P Problem List: (1) Dementia ICD Code: F03.90 Status: Acute (2) Diabetic foot infection ICD Code: E11.69 Status: Acute (3) DM (diabetes mellitus) ICD Code: E11.9 Status: Chronic (4) Hypertension ICD Code: I10 Status: Chronic (5) Atrial fibrillation ICD Code: I48.91 Status: Chronic (6) PAD (peripheral artery disease) ICD Code: I73.9 Status: Acute (7) Diabetes ICD Code: E11.9 Status: Chronic (8) Cellulitis in diabetic foot ICD Code: E13.628 Status: Acute Assessment and Plan 80 yrs old man with Left foot Gangrene Left 3rd toe Gangrene Diabetic Foot Infection Cellulitis of left foot PAD Leukocytosis Vancomycin and Zosyn however will discontinue his antibiotics 08/10/16 and monitor culture Toe amputation and I&D/Debridement performed 08/03/16 Foot amputation 08/05/16 s/p Left BKA 08/09/16 and appreciate input from vascular surgery HTN Continue baseline treatments. Continue with Lasix Monitor BP Dementia Supportive Care Hyperlipidemia On statin DM2 SSI A-fib Rate controlled on Cardizem DVT Prophylaxis Resume Lovenox if okay with vascular surgery Jose C Ro MD August 10, 2016 09:40
[2016-08-10] MEDS: VANCOMYCIN INJ 1,000 MG in SODIUM CHLOR 0.9% 250 ML INJ 250 ML IV SCH (13:00)
--- NOTE | 2016-08-10 13:20 | MP ---
cc: KAUSHAL PERRY DATE OF SURGERY 08/09/2016 ATTENDING PHYSICIAN Kaushal Perry DO PREOPERATIVE DIAGNOSIS Critical limb ischemia, history of left ankle disarticulation and revascularizations with completion BKA PROCEDURE Left below-knee amputation. POSTOPERATIVE DIAGNOSIS Critical limb ischemia, history of left ankle disarticulation and revascularizations with completion BKA PROCEDURE Left below-knee amputation ANESTHESIA General with femoral nerve block and local anesthetic with 0.25% Marcaine with epinephrine ESTIMATED BLOOD LOSS Approximately 100 cc URINE OUTPUT Not calculated COMPLICATIONS None DISPOSITION To PACU PROCEDURE After the patient was under general anesthesia and ended up getting perioperative IV antibiotics throughout the course of the case Xiomarasyhussein. We wrapped the leg with an Esmarch bandage and then I made an incision one handbreadth below the tibial tuberosity. We then made a posterior incision flap and connected the two with a linear incision. I used a scalpel and electrocautery. I dissected the vessels and divided all the tibial vessels as well as the saphenous vein with 2-0 suture ligatures and 2-0 ties as needed. I used multiple 2-0 pop-offs for some the deep tissues. I used an oscillating saw to cut through the tibia and the fibula after using rakes to retract the flap up towards the head. I used an amputation knife to cut through the posterior muscle and then removed the left lower extremity to be sent for pathology. I then irrigated the area with one liter of normal saline with gentamicin. It should be noted, there was no purulence noted and there was good viable tissue after we left down the tourniquet and even before this. We used 2-0 Vicryl absorbable sutures as needed and electrocautery to help out with our hemostasis and I used also Mahnaz. I closed over the stump of the tibia with multiple interrupted 2-0 Vicryl absorbable sutures and used 2-0 Vicryl absorbable sutures in interrupted fashion to close the deep fascia and 3-0 subdermal sutures interrupted as well. I used la for skin, place a Xeroform and then 4x4s with an Ioban and over that I placed 4x4s and a Kerlix and an Zack bandage. The patient at the end of the case had a feeding femoral and sciatic nerve block to help out with postoperative pain and phantom pain. DO LEVY Wild/DILIP /2:13 PM /1:06 PM
--- NOTE | 2016-08-10 14:03 | PD.VS.PN ---
Subjective POD #: 1 Procedure(s): left common femoral artery endarterectomy Left Foot I&D with wound vac placement left BKA completion. Subjective/Hospital Course Status post left ankle disarticulation POD#2 Subsequent revascularization of left common femoral artery. status post left BKA Pt alert this am Pt w/o complaints Nurse reported pt doing well No N/V/D Sitter at the BS ([facility]) Objective Vitals/I&O Date Time Temp Pulse Resp B/P Pulse Ox O2 Delivery O2 Flow Rate FiO2 08/10/16 12:07 70 08/10/16 11:12 97.4 75 18 137/77 98 08/10/16 11:12 64 08/10/16 10:21 70 08/10/16 09:51 72 08/10/16 08:01 70 08/10/16 08:00 93 21 08/10/16 07:18 69 08/10/16 07:18 98.5 63 20 142/68 98 08/10/16 06:00 66 08/10/16 05:00 60 08/10/16 04:00 62 08/10/16 03:33 98.0 66 20 135/69 96 08/10/16 03:11 59 08/10/16 03:00 68 08/10/16 02:00 72 08/10/16 01:00 70 08/10/16 00:00 98.2 74 18 103/41 98 08/09/16 22:57 74 08/09/16 20:45 21 08/09/16 20:00 97.8 76 14 124/60 96 08/09/16 20:00 71 08/09/16 18:22 76 08/09/16 17:02 78 08/09/16 16:27 80 08/09/16 15:54 98.6 75 21 130/60 98 Room Air 08/09/16 15:45 78 23 123/62 98 Room Air 08/09/16 15:30 80 23 126/60 97 Room Air 08/09/16 15:15 76 22 110/54 97 Room Air 08/09/16 15:06 85 08/09/16 15:06 97.4 73 18 125/65 97 08/09/16 15:00 80 24 101/53 94 Room Air 08/09/16 14:50 99.3 80 30 99/54 95 Room Air Exam: GENERAL: Pt is awake, alert and confused in NAD SKIN: Warm and dry. L groin vac in place/no hematoma. CARDIOVASCULAR: RRR, +S1,S2 w/o M/G/R RESPIRATORY: BS CTA GASTROINTESTINAL: Abdomen S/NT MUSCULOSKELETAL: No cyanosis, or edema. 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 Underwent left ankle disarticulation and left femoral endarterectomy. Completion BKA performed. Plan L BKA dressing to be removed on PT/OOB Placement for OP Rehab Elias to be removed tomorrow AM Recommend 2 weeks total Vancomycin/Levaquin therapy [facility]/[employer] [phone] Discharge Planning Placement for OP Rehab facility ([facility]) Plan I agree with above assessment and plan. Stump stocking and stump protector needed. Rehabilitation from my standpoint when ready. David Bhardwaj DO, FACS (David Bhardwaj DO) [facility] August 10, 2016 14:03 David Bhardwaj DO August 10, 2016 18:28
[2016-08-10] MEDS: ACETAMINOPHEN/HYDROcodone 325 MG/5 MG TAB PO PRN (14:55)
[2016-08-10] MEDS: SENNOSIDES 8.6 MG TAB PO SCH (20:55)
[2016-08-10] MEDS: ATORVASTATIN 40 MG TAB PO SCH (20:55)
[2016-08-11] VITALS (18 sets, daily range): BP systolic 98–155; BP diastolic 48–83; PULSE 74–103; RESP 18; TEMP 96.7–98.8; O2SAT 95–98
[2016-08-11] MEDS: ACETAMINOPHEN/HYDROcodone 325 MG/5 MG TAB PO PRN (00:12)
[2016-08-11] MEDS: RESP: ALBUTEROL 2.5 MG/3 ML NEB (SCH) NEB ×3 (00:29→15:31)
[2016-08-11] MEDS: PIPERACIL-TAZO 3.375 GM PREMIX 50 ML IV SCH ×2 (05:36→14:02)
[2016-08-11] MEDS: INSULIN ASPART SUPPLEMENTAL SCALE SQ SCH ×3 (06:08→16:00)
[2016-08-11] MEDS: FUROSEMIDE 20 MG TAB PO SCH (09:03)
[2016-08-11] MEDS: DOCUSATE SODIUM 100 MG CAP PO SCH (09:03)
[2016-08-11] MEDS: POLYETHYLENE GLYCOL 17 GM PKG PO SCH (09:03)
[2016-08-11] MEDS: CARVEDILOL 12.5 MG TAB PO SCH (09:03)
[2016-08-11] MEDS: POTASSIUM PHOSPHATE MONOBASIC 500 MG TAB PO SCH (09:03)
[2016-08-11] MEDS: DILTIAZEM-CD 180 MG CAP ER PO SCH (09:04)
[2016-08-11] MEDS: MULTIVITAMINS/MINERALS THERAPEUTIC TAB PO SCH (09:04)
[2016-08-11] MEDS: SODIUM CHLORIDE 0.9% FLUSH 10 ML FLUSH IV FLUSH SCH (09:04)
[2016-08-11] MEDS: MAGNESIUM HYDROXIDE SUSP 30 ML CUP PO SCH (09:04)
--- NOTE | 2016-08-11 10:30 | HHI.PR ---
Subjective Remarks Follow-up foot osteomyelitis/gangrene/status post BKA 08/10/16-patient seen and examined, no acute event overnight. Currently afebrile and taking by mouth without any competition nausea and vomiting. 08/11/16-patient seen and examined, stable and no acute event overnight. Vitals stable. Sitter in the room Objective Vitals Vital Signs Date Time Temp Pulse Resp B/P Pulse Ox O2 Delivery O2 Flow Rate FiO2 08/11/16 07:29 98 21 08/11/16 07:00 97.5 96 18 135/58 98 08/11/16 07:00 91 08/11/16 06:29 98 08/11/16 05:00 88 08/11/16 04:32 97.5 103 135/74 96 08/11/16 04:02 92 08/11/16 03:00 82 08/11/16 01:02 96.7 101 155/83 96 08/11/16 00:31 95 21 08/10/16 23:00 84 08/10/16 19:00 74 08/10/16 19:00 98.6 77 143/76 96 08/10/16 18:24 78 08/10/16 17:02 70 08/10/16 16:54 16 08/10/16 16:19 98.3 78 18 121/76 98 08/10/16 16:19 76 08/10/16 15:56 98 21 08/10/16 14:04 66 08/10/16 13:53 82 08/10/16 12:07 70 08/10/16 11:12 97.4 75 18 137/77 98 08/10/16 11:12 64 I/O 08/10/16 08/10/16 08/10/16 08/11/16 08/11/16 08/11/16 07:00 15:00 23:00 07:00 15:00 23:00 Intake Total 240 ml 1090 ml 240 ml Output Total 1850 ml 1250 ml 800 ml Balance -1610 ml -160 ml -560 ml Intake Oral 240 ml 740 ml 240 ml IV Total 350 ml Output Urine Total 1850 ml 1250 ml 800 ml # Bowel Movements 0 1 Result Diagram: 08/09/16 0429 08/09/16 0429 Objective Remarks GENERAL: NAD SKIN: Warm and dry. HEAD: Normocephalic. EYES: No scleral icterus. No injection or drainage. NECK: Supple, trachea midline. No JVD or lymphadenopathy. CARDIOVASCULAR: Regular rate and rhythm without murmurs, gallops, or rubs. RESPIRATORY: Breath sounds equal bilaterally. No accessory muscle use. GASTROINTESTINAL: Abdomen soft, non-tender, nondistended. MUSCULOSKELETAL: No cyanosis, or edema. s/p left BKA-dressing in place BACK: Nontender without obvious deformity. No CVA tenderness. Procedures s/p Left BKA 08/09/16 A/P Problem List: (1) Dementia ICD Code: F03.90 Status: Acute (2) Diabetic foot infection ICD Code: E11.69 Status: Acute (3) DM (diabetes mellitus) ICD Code: E11.9 Status: Chronic (4) Hypertension ICD Code: I10 Status: Chronic (5) Atrial fibrillation ICD Code: I48.91 Status: Chronic (6) PAD (peripheral artery disease) ICD Code: I73.9 Status: Acute (7) Diabetes ICD Code: E11.9 Status: Chronic (8) Cellulitis in diabetic foot ICD Code: E13.628 Status: Acute Assessment and Plan 80 yrs old man with Left foot Gangrene Left 3rd toe Gangrene Diabetic Foot Infection Cellulitis of left foot PAD Leukocytosis Vancomycin and Zosyn however patient will be discharged on Levaquin to complete a total of 2 weeks course of antibiotic Toe amputation and I&D/Debridement performed 08/03/16 Foot amputation 08/05/16 s/p Left BKA 08/09/16 and appreciate input from vascular surgery HTN Continue baseline treatments. Continue with Lasix Monitor BP Dementia Supportive Care Sitter in the room Hyperlipidemia On statin DM2 SSI A-fib Rate controlled on Cardizem DVT Prophylaxis Resume Lovenox if okay with vascular surgery Jose C Ro MD August 11, 2016 10:30
--- NOTE | 2016-08-11 11:49 | PD.VS.PN ---
Subjective POD #: 2 Procedure(s): left common femoral artery endarterectomy Left Foot I&D with wound vac placement left BKA completion. Subjective/Hospital Course S/P Left BKA Pt alert this am Pt following commands Sitter at the BS Objective Vitals/I&O Date Time Temp Pulse Resp B/P Pulse Ox O2 Delivery O2 Flow Rate FiO2 08/11/16 10:00 81 08/11/16 09:00 94 08/11/16 08:00 90 08/11/16 07:29 98 21 08/11/16 07:00 97.5 96 18 135/58 98 08/11/16 07:00 91 08/11/16 06:29 98 08/11/16 05:00 88 08/11/16 04:32 97.5 103 135/74 96 08/11/16 04:02 92 08/11/16 03:00 82 08/11/16 01:02 96.7 101 155/83 96 08/11/16 00:31 95 21 08/10/16 23:00 84 08/10/16 19:00 74 08/10/16 19:00 98.6 77 143/76 96 08/10/16 18:24 78 08/10/16 17:02 70 08/10/16 16:54 16 08/10/16 16:19 98.3 78 18 121/76 98 08/10/16 16:19 76 08/10/16 15:56 98 21 08/10/16 14:04 66 08/10/16 13:53 82 08/10/16 12:07 70 08/11/16 08/11/16 08/11/16 07:00 15:00 23:00 Intake Total 240 ml Output Total 800 ml Balance -560 ml Exam: GENERAL: Pt is awake, alert and confused in NAD SKIN: Warm and dry. L groin vac in place/no hematoma. CARDIOVASCULAR: RRR, +S1,S2 w/o M/G/R RESPIRATORY: BS CTA GASTROINTESTINAL: Abdomen S/NT MUSCULOSKELETAL: No cyanosis, or edema. L BKA dressing I/C/D with knee immobilizer placed R DP/PT with phasic signals noted Pulses: R DP with phasic signals noted Incisions: L groin vac in place with no hematoma Incisions: Left groin vac in place Assessment and Plan Assessment: (1) Diabetic foot infection Status: Acute Plan Plan Will remove dressing this afternoon Ok to resume Lovenox therapy Picc line insertion ordered Merced GRADY [facility] [place] [phone] Discharge Planning Placement for OP Rehab facility Merced Ellis August 11, 2016 11:49
--- NOTE | 2016-08-11 11:50 | PD.VS.PN ---
Subjective Subjective/Hospital Course Status post left ankle disarticulation POD#2 Subsequent revascularization of left common femoral artery. status post left BKA Pt alert this am Pt w/o complaints Nurse reported pt doing well No N/V/D Sitter at the BS Patient more oriented today. Objective Vitals/I&O Date Time Temp Pulse Resp B/P Pulse Ox O2 Delivery O2 Flow Rate FiO2 08/11/16 11:00 85 08/11/16 11:00 98.8 90 18 98/48 96 08/11/16 10:00 81 08/11/16 09:00 94 08/11/16 08:00 90 08/11/16 07:29 98 21 08/11/16 07:00 97.5 96 18 135/58 98 08/11/16 07:00 91 08/11/16 06:29 98 08/11/16 05:00 88 08/11/16 04:32 97.5 103 135/74 96 08/11/16 04:02 92 08/11/16 03:00 82 08/11/16 01:02 96.7 101 155/83 96 08/11/16 00:31 95 21 08/10/16 23:00 84 08/10/16 19:00 74 08/10/16 19:00 98.6 77 143/76 96 08/10/16 18:24 78 08/10/16 17:02 70 08/10/16 16:54 16 08/10/16 16:19 98.3 78 18 121/76 98 08/10/16 16:19 76 08/10/16 15:56 98 21 08/10/16 14:04 66 08/10/16 13:53 82 08/10/16 12:07 70 08/11/16 08/11/16 08/11/16 07:00 15:00 23:00 Intake Total 240 ml Output Total 800 ml Balance -560 ml Physical Exam left groin and stump dressing in place. Assessment and Plan Assessment: (1) Diabetic foot infection Status: Acute Plan I agree with above assessment and plan. Stump stocking and stump protector needed. Rehabilitation from my standpoint when ready. David Bhardwaj DO, FACS Discharge Planning Placement for OP Rehab facility David Bhardwaj DO August 11, 2016 11:50
[2016-08-11] MEDS: VANCOMYCIN INJ 1,000 MG in SODIUM CHLOR 0.9% 250 ML INJ 250 ML IV SCH (14:03)
[2016-08-11] MEDS ORDERED: LACTCHW3 CHEW (14:59)
[2016-08-11] MEDS ORDERED: LEVA500T PO (14:59)
[2016-08-11] MEDS ORDERED: HYDR-3516 PO (14:59)
--- NOTE | 2016-08-11 15:01 | HHI.DS ---
Discharge Summary Admission Date August 02, 2016 at 13:40 Discharge Date: August 11, 2016 Admitting Diagnosis diabetic wound infection (1) Dementia ICD Code: F03.90 (2) Diabetic foot infection ICD Code: E11.69 (3) DM (diabetes mellitus) ICD Code: E11.9 (4) Hypertension ICD Code: I10 (5) Atrial fibrillation ICD Code: I48.91 (6) PAD (peripheral artery disease) ICD Code: I73.9 (7) Diabetes ICD Code: E11.9 (8) Cellulitis in diabetic foot ICD Code: E13.628 Procedures s/p Left BKA 08/09/16 Brief History - From Admission Mr. Marcos is a 80 year old male. He is here today due to worsening of his left foot wound, now with signs of infection and gangrene. He has chronic and poor lower extremity blood flow from PAD related to a history of smoking and DM2. As an outpatient he was planned for a third toe amputation and revascularization in 3 days and has been on levaquin and bactrim, but due to the worsening he came into the hospital and may have earlier intervention. History is obtained from his as he has dementia and is not fully oriented enough to provide a good history. No fever, tachycardia, or hypotension. Sepsis criteria are not present at time of admit. CBC/BMP: 08/09/16 0429 08/09/16 0429 Significant Findings Laboratory Tests Test 08/09/16 04:29 White Blood Count 12.9 TH/MM3 (4.0-11.0) Red Blood Count 3.22 MIL/MM3 (4.50-5.90) Hemoglobin 8.0 GM/DL (13.0-17.0) Hematocrit 24.2 % (39.0-51.0) Mean Corpuscular Volume 74.9 FL (80.0-100.0) Mean Corpuscular Hemoglobin 25.0 PG (27.0-34.0) Red Cell Distribution Width 20.1 % (11.6-17.2) Sodium Level 133 MEQ/L (136-145) Chloride Level 96 MEQ/L (98-107) Calcium Level 8.3 MG/DL (8.5-10.1) Imaging Last Impressions Lower Extremity CT 08/02/16 0000 Signed Impressions: Service Date/Time: Tuesday, August 02, 2016 15:18 - CONCLUSION: 1. Degraded study by motion artifact. 2. 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 3. Diffuse edema with subcutaneous air involving the plantar soft tissues. This can be seen in infections with gas producing organisms as well as air introduced via trauma. Jose Luis Welch Jr., MD Foot X-Ray 08/02/16 0000 Signed Impressions: Service Date/Time: Tuesday, August 02, 2016 12:37 - CONCLUSION: 1. Prior amputations. 2. No acute abnormality. Jose Luis Welch Jr., MD PE at Discharge GENERAL: NAD SKIN: Warm and dry. HEAD: Normocephalic. EYES: No scleral icterus. No injection or drainage. NECK: Supple, trachea midline. No JVD or lymphadenopathy. CARDIOVASCULAR: Regular rate and rhythm without murmurs, gallops, or rubs. RESPIRATORY: Breath sounds equal bilaterally. No accessory muscle use. GASTROINTESTINAL: Abdomen soft, non-tender, nondistended. MUSCULOSKELETAL: No cyanosis, or edema. s/p left BKA-dressing in place BACK: Nontender without obvious deformity. No CVA tenderness. Hospital Course Left foot Gangrene Left 3rd toe Gangrene Diabetic Foot Infection Cellulitis of left foot PAD Leukocytosis Vancomycin and Zosyn however patient will be discharged on Levaquin to complete a total of 2 weeks course of antibiotic Toe amputation and I&D/Debridement performed 08/03/16 Foot amputation 08/05/16 s/p Left BKA 08/09/16 and appreciate input from vascular surgery HTN Continue baseline treatments. Continue with Lasix Monitor BP Dementia Supportive Care Sitter in the room Hyperlipidemia On statin DM2 SSI A-fib Rate controlled on Cardizem DVT Prophylaxis Resume Lovenox if okay with vascular surgery Pt Condition on Discharge: Fair Discharge Disposition: Discharge to SNF Discharge Time: > 30 minutes Discharge Instructions DIET: Follow Instructions for: Diabetic Diet Activities you can perform: Regular-No Restrictions Follow up Referrals: PCP Follow-up - 2-3 Days Vascular Surgery - 1 Week New Medications: Lactobacillus Acidophilus (Lactinex) 1 Chew 1 TAB CHEW BID Nutritional Supplement #60 Ref 0 TAB Levofloxacin (Levaquin) 500 Mg Tab 500 MG PO DAILY Infection #14 Ref 0 TAB Hydrocodone-Acetaminophen (Hydrocodone-Acetaminophen) 5-325 mg Tab 1 TAB PO Q4H PRN PAIN > 3 #20 TAB Continued Medications: Acetaminophen (Acetaminophen) 325 Mg Tab 650 MG PO Q4HR PRN PAIN/ELEVATED TEMP Ref 0 TAB Aspirin (Aspirin) 81 Mg Tabdr 81 MG PO DAILY TAB Atorvastatin (Atorvastatin) 40 Mg Tab 40 MG PO HS Cholesterol Management #30 Ref 0 TAB Bisacodyl Supp (Dulcolax Supp) 10 Mg Supp 10 MG RECTAL DAILY PRN CONSTIPATION #12 Ref 0 SUPP Carvedilol (Carvedilol) 12.5 Mg Tab 12.5 MG PO BID #60 Ref 0 TAB Clopidogrel (Clopidogrel) 75 Mg Tab 75 MG PO DAILY Blood Clot Prevention #30 Ref 0 TAB Diltiazem ER 24 HR (Diltiazem ER 24 HR) 180 Mg Caper 180 MG PO DAILY #30 Ref 0 CAP Escitalopram (Lexapro) 10 Mg Tab 10 MG PO DAILY #30 Ref 0 TAB Ferrous Sulfate (Ferrous Sulfate) 325 Mg Tab 325 MG PO DAILY Nutritional Supplement #30 Ref 0 TAB Furosemide (Furosemide) 20 Mg Tab 20 MG PO DAILY #30 Ref 0 TAB Gabapentin (Gabapentin) 300 Mg Cap 300 MG PO BID #60 Ref 0 CAP Glipizide (Glipizide) 5 Mg Tab 5 MG PO DAILY Take 30 minutes before a meal Blood Sugar Management #30 Ref 0 TAB Magnesium Hydroxide Liq (Milk of Magnesia Liq) 400 Mg/5 Ml Susp 30 ML PO DAILY PRN INDIGESTION OR UPSET STOMACH #1 Ref 0 BOTTLE Magnesium Oxide (Magnesium Oxide) 400 Mg Tab 400 MG PO DAILY Nutritional Supplement Ref 0 TAB Metformin (Metformin) 1,000 Mg Tab 1000 MG PO BIDPC With meals Blood Sugar Management #60 Ref 0 TAB Multiple Vitamins W/ Minerals (Thera-M) 1 Tab 1 TAB PO DAILY Nutritional Supplement Ref 0 TAB Multiple Vitamins W/ Minerals (Prosight) 1 Tab Tab 1 TAB PO DAILY Multiple Vitamins W/ Minerals (Stress Formula) 1 Tab 1 TAB PO DAILY Nutritional Supplement Ref 0 TAB Nutritional Supplements (Glucerna Shake) 1 Liq Liq 1 CAN PO WITH MEALS Potassium Chloride ER (Potassium Chloride ER) 10 Meq Tab 10 MEQ PO TID Electrolyte Replacement #60 Ref 0 TAB Sodium Phosphates Rectal (Fleet Enema Rectal) 7-19 Gm/118 Ml Enem 1 APPLIC RECTAL DAILY PRN CONSTIPATION Ref 0 BOTTLE Discontinued Medications: Sulfamethoxazole-Trimethoprim (Bactrim DS) 800-160 Mg Tab 1 TAB PO BID Infection #7 Ref 0 TAB Jose C Ro MD August 11, 2016 15:00
== END 2016-08-11 16:47 | DRG 240 ==
LOC: NEPE 11:43 → NEDA 13:40 → N07A 17:03 → N03B 08-03 13:46 → HCIS 08-03 14:33 → N04B 08-04 19:34 → N03B 08-05 16:07 → HCIS 08-05 19:44
PROVIDERS: ADMIT Hospitalist; ATTEND Hospitalist
PROC: 3E0T3CZ (ICD-10-PCS; 2016-08-03)
PROC: 0Y6U0Z1 Detachment at Left 3rd Toe, High, Open Approach (ICD-10-PCS; principal; 2016-08-03 12:10)
PROC: 0Y6N0Z0 Detachment at Left Foot, Complete, Open Approach (ICD-10-PCS; 2016-08-03 12:10)
PROC: 3E0T3CZ (ICD-10-PCS; 2016-08-05)
PROC: 3E10X8Z Irrigation of Skin and Mucous Membranes using Irrigating Substance (ICD-10-PCS; 2016-08-05)
PROC: 30233K1 Transfusion of Nonautologous Frozen Plasma into Peripheral Vein, Percutaneous Approach (ICD-10-PCS; 2016-08-05)
PROC: 30233N1 Transfusion of Nonautologous Red Blood Cells into Peripheral Vein, Percutaneous Approach (ICD-10-PCS; 2016-08-05)
PROC: 30233R1 Transfusion of Nonautologous Platelets into Peripheral Vein, Percutaneous Approach (ICD-10-PCS; 2016-08-05)
PROC: 04CL0ZZ Extirpation of Matter from Left Femoral Artery, Open Approach (ICD-10-PCS; 2016-08-05 11:37)
PROC: 0Y6J0Z1 Detachment at Left Lower Leg, High, Open Approach (ICD-10-PCS; 2016-08-09)
PROC: 3E0T3CZ (ICD-10-PCS; 2016-08-09)
DX: E11.52 Type 2 diabetes mellitus with diabetic peripheral angiopathy with gangrene (principal); I70.262 Atherosclerosis of native arteries of extremities with gangrene, left leg; E11.69 Type 2 diabetes mellitus with other specified complication; I50.9 Heart failure, unspecified; F03.90 Unspecified dementia, unspecified severity, without behavioral disturbance, psychotic disturbance, mood disturbance, and anxiety; I48.91 Unspecified atrial fibrillation; I10 Essential (primary) hypertension; G54.6 Phantom limb syndrome with pain; L03.116 Cellulitis of left lower limb; F32.9 Major depressive disorder, single episode, unspecified; E78.5 Hyperlipidemia, unspecified; I25.10 Atherosclerotic heart disease of native coronary artery without angina pectoris; I25.2 Old myocardial infarction; E78.00 Pure hypercholesterolemia, unspecified; F41.9 Anxiety disorder, unspecified; G47.30 Sleep apnea, unspecified; Z87.891 Personal history of nicotine dependence; Z89.429 Acquired absence of other toe(s), unspecified side
CPT/HCPCS: 36430; 73630; 73701; 76937; 80048; 80053; 80202; 82948; 83605; 83735; 84100; 85014; 85018; 85025; 85027; 85610; 85652; 85730; 86140; 86403; 86850; 86900; 86901; 86920; 86927; 86965; 87015; 87040; 87070; 87077; 87102; 87116; 87147; 87186; 87205; 87206; 88304; 88305; 88307; 88311; 93005; 94640; 94667; 94668; 96365; C1769; C1887; C1893; J0690; J1580; J1644; J1650; J1815; J2370; J2543; J2710; J2720; J2795; J3010; J3370; J7030; J7040; J7050; J7120; J7613; L1830; P9016; P9017; P9035; Q9967